=== PATIENT | male | born 1950 | race Caucasian/White ===

== ENCOUNTER → 2021-01-13 15:51 | Outpatient (CLI) | payer MEDICARE, SELFPAY ==
[2021-01-13 16:24] LABS: Prothrombin Time 58.3 SECONDS (10.1-12.7)
== END ==
PROVIDERS: PCP Internal Medicine Cardiovascular Disease; Referring Provider Internal Medicine Cardiovascular Disease; Visit Provider Internal Medicine Cardiovascular Disease
DX: I48.0 Paroxysmal atrial fibrillation (principal)
CPT/HCPCS: 36415; 85610

== ENCOUNTER 2022-12-05 14:02 | Inpatient (IN) | payer MEDICARE, SELFPAY ==
[2022-12-05] VITALS (80 sets, daily range): BP systolic 84–134; BP diastolic 53–74; PULSE 59–87; RESP 16–40; TEMP 37–38.4; O2SAT 90–98; BMI 24.7
--- NOTE | 2022-12-05 14:51 | DI.RAD.S_ITS ---
PROCEDURE: XR CHEST 1V INDICATIONS: suspected sepsis TECHNIQUE: One view of the chest was acquired. COMPARISON: None. FINDINGS: Surgical changes and devices: Cardiac device overlying the mediastinum. Lungs and pleura: Bibasilar curvilinear opacities likely reflecting atelectasis and/or scarring. No pleural effusion. No pneumothorax. Mediastinum: Enlarged cardiac silhouette likely exaggerated by AP technique. Bones and chest wall: No suspicious bony lesions. Overlying soft tissues appear unremarkable. IMPRESSION: Bibasilar curvilinear opacities favored to represent atelectasis with infection not excluded. Dictated by: George Tucker M.D. on 12/05/2022 at 14:29 Approved by: George Tucker M.D. on 12/05/2022 at 14:30
[2022-12-05 15:07] LABS: Bacteria Urine Few (2-10); Culture Indicated Urine Cult Not Indicated; RBC Urine 1-5/HPF (0-5/HPF); Squamous Epithelial Cell Urine 0-1 /HPF (0-5/HPF); WBC Urine 0-1/HPF (0-5/HPF)
[2022-12-05 15:26] LABS: Adenovirus Not Detected (Not Detect); B. parapertussis Not Detected (Not Detecte); Bordetella pertussis Not Detected (Not Detecte); Chlamydophila pneumoniae Not Detected (Not Detect); Coronavirus 229E Not Detected (Not Detect); Coronavirus HKU1 Not Detected (Not Detect); Coronavirus NL 63 Not Detected (Not Detect); Coronavirus OC43 Not Detected (Not Detect); Human Metapneumovirus Not Detected (Not Detect); Human Rhinovirus/Enterovirus Not Detected (Not Detect); Influenza A Not Detected (Not Detect); Influenza B Not Detected (Not Detect); Mycoplasma pneumoniae Not Detected (Not Detect); Parainfluenza Virus 1 Not Detected (Not Detect); Parainfluenza Virus 2 Not Detected (Not Detect); Parainfluenza Virus 3 Not Detected (Not Detect); Parainfluenza Virus 4 Not Detected (Not Detect); Respiratory Syncytial Virus Not Detected (Not Detect); SARS- CoV-2 Not Detected (Not Detecte)
--- NOTE | 2022-12-05 15:50 | PC.NURSE ---
Called from [facility] to rm 8. upon standing pt with unsteady gait and almost fell backwards. was assisted to a sitting position by RN and was taken in wheelchair to room 8. This unsteadiness is a change from triage assessment.
[2022-12-05 16:14] LABS: Add Manual Diff / Slide Review NO; Basophils Absolute Auto 0 /uL (0-100); Basophils Percent Auto 0.3 % (0-2); Eosinophils Absolute Auto 0 /uL (0-450); Hematocrit 35.8 % (41-53); Hemoglobin 12.3 g/dL (13.5-17.5); Lymphocytes Absolute Auto 200 /uL (1100-4500); Lymphocytes Percent Auto 1.6 % (25-40); Mean Corpuscular HGB Conc 34.3 % (30-36); Mean Corpuscular Hemoglobin 33.3 PG (26-34); Mean Corpuscular Volume 97.1 fL (80-100); Monocytes Absolute Auto 200 /uL (0-900); Monocytes Percent Auto 1.9 % (3-14); Neutrophils Absolute Auto 11300 /uL (1500-7000); Neutrophils Percent Auto 96.2 % (50-75); Platelet Count 171 X10^3/uL (150-400); Red Blood Cell Count 3.69 X10^6/uL (4.5-5.9); Red Cell Distribution Width 14.1 % (11.6-14.8); White Blood Cell Count 11.8 X10^3/uL (4.5-11.0)
[2022-12-05] MEDS: SODIUM CHLORIDE 0.9% 1,000 ML 1000 ML IV (16:15)
[2022-12-05 16:24] LABS: INR 1.3 (0.9-1.3); Prothrombin Time 15.5 SECONDS (10.1-12.7)
[2022-12-05 16:27] LABS: PTT Partial Thromboplastin Tim 29 SECONDS (26-36)
[2022-12-05 16:30] LABS: Lactate (Lactic Acid) 2.5 mmol/L (0.7-2.1)
[2022-12-05 16:31] LABS: Alanine Aminotransferase 30 IU/L (<50); Albumin 4.3 g/dL (3.5-5.0); Albumin Globulin Ratio 1.2 (1.0-2.8); Alkaline Phosphatase 67 U/L (38-126); Aspartate Aminotransferase 36 IU/L (17-59); BUN Creatinine Ratio 21.9 (6-22); Bilirubin Total 1.5 mg/dL (0.2-1.3); Blood Urea Nitrogen 42 mg/dL (9-20); Calcium 9.5 mg/dL (8.4-10.2); Carbon Dioxide 27 mmol/L (22-32); Chloride 101 mmol/L (98-107); Estimated Glomerular Filt Rate 36 mL/min (>60); Globulin 3.5 g/dL (1.7-4.1); Glucose 94 mg/dL (80-110); HEMOLYSIS 15 (0-50); Lipase 174 U/L (23-300); Potassium 4.2 mmol/L (3.4-5.1); Sodium 137 mmol/L (137-145); Total Protein 7.8 g/dL (6.3-8.2)
[2022-12-05 16:47] LABS: Procalcitonin 1.82 ng/mL (<0.5)
[2022-12-05 18:10] LABS: Reflexed Lactate in 2 Hours Y
--- NOTE | 2022-12-05 18:14 | ED.SEPSIS ---
HPI - Sepsis General Chief Complaint: Fever Mode of arrival: Ambulatory Source: patient Evaluation Sepsis Screen: No Definite Risk Sepsis Infection Criteria Present: Suspected New Infection Narrative: 72-year-old male nonsmoker with a history of pacemaker placement a few months ago, sepsis with prolonged hospitalization in March at [facility] and he reports as chronic kidney disease (no dialysis) presents with a chief complaint of fever and shaking chills that started this morning. He denies much in the way of specific complaints but it is feeling fatigued with a mild headache. He denies any runny nose or sore throat. He denies chest pain, shortness of breath or cough. Denies abdominal pain, nausea, vomiting or diarrhea. The source of his sepsis last year was a LLE infection. He denies any pain, swelling, or discoloration in his leg, but does state it has been warm. He denies dysuria, frequency or urgency. Review of Systems Review of Systems Narrative: GENERAL: See HPI HEENT: Denies sinus pain, ear pain, sore throat, difficulty swallowing, dizziness. RESPIRATORY: Denies dyspnea, cough, wheezing, hemoptysis, sputum. CARDIOVASCULAR: Denies chest pain, palpitations, orthopnea, edema, GASTROINTESTINAL: Denies nausea, vomiting, abdominal pain, diarrhea, constipation, melena. : Denies dysuria, frequency, incontinence, hematuria, urinary retention. MUSCULOSKELETAL: denies weakness, joint pain, or bony pain SKIN: See HPI NEUROLOGIC: See HPI PSYCHIATRIC: No concerning psychosocial issues. 12 point review of systems is negative except for those stated above Patient History Medical History (Updated 12/06/22 @ 05:11 by Fortino Menjivar DO) AAA (abdominal aortic aneurysm) Abscess of left lower extremity Anticoagulant long-term use Atrial fibrillation Cholelithiasis COVID-19 virus infection Glaucoma Hyperlipidemia Hypertension Hypothyroid FARIDEH (obstructive sleep apnea) Osteoporosis Pacemaker Pulmonary hypertension Stage 3b chronic kidney disease (CKD) Social History household members: spouse Smoking Status: Never smoker alcohol intake: current Smoking Status: Never smoker Substance Use Type: does not use Exam Narrative Exam Narrative: GENERAL: [72] year old patient appears stated age. Well-developed patient, in mild distress. HEAD: Atraumatic. Normocephalic. EYES: Pupils equal round and reactive. Extraocular motions intact. No scleral icterus. No injection or drainage. ENT: Nose without bleeding, purulent drainage. Throat without erythema, tonsillar hypertrophy or exudate. Airway patent. NECK: Trachea midline. Non tender CARDIOVASCULAR: Regular rate and rhythm without murmurs, gallops, or rubs. RESPIRATORY: Clear to auscultation. Breath sounds equal bilaterally. No wheezes, rales, or rhonchi. GASTROINTESTINAL: Abdomen soft, non-tender, nondistended. EXTREMITIES: No edema or joint tenderness. BACK: Nontender without deformity or crepitance. No flank tenderness. NEURO: AOx3. SKIN: LLE with warmth below the knee, no obvious swelling. No drainage Initial Vital Signs Initial Vital Signs: Vital Signs Temperature 98.6 F 12/05/22 14:11 Pulse Rate 83 12/05/22 14:11 Respiratory Rate 16 12/05/22 14:11 Blood Pressure 102/60 12/05/22 14:11 Pulse Oximetry 97 12/05/22 14:11 Oxygen Delivery Method Room Air 12/05/22 14:11 Course Orders Ordered: ED Orders 12/05/22 23:48 CT LE LT wo con Stat 12/06/22 01:58 Lactate (Lactic Acid) Stat 12/06/22 02:18 Consult After Hours PICC Line RN Stat 12/06/22 03:50 MRSA (Nasal) PCR Stat 12/06/22 05:00 Complete Blood Count AUTO DIFF Routine Comprehensive Metabolic Panel Routine Acetaminophen (Acetaminophen 325 Mg Tablet) 650 mg PO Q6H PRN PRN Reason: Fever/Mild Pain (1-3) Sodium Chloride (Normal Saline 0.9%) 1,000 mls @ 150 mls/hr IV CONT PRASANTH Last Admin: 12/06/22 04:01 Dose: 150 mls/hr Documented By: [facility] NOREPINEPHRINE BITARTRATE/D5W (Levophed) 4 mg in 250 mls @ 30 mls/hr IV TITRATE PRASANTH; Protocol Linezolid (Zyvox) 600 mg in 300 mls @ 600 mls/hr IV Q12H PRASANTH Piperacillin Sod/Tazobactam (Sod 3.375 gm/ Sodium Chloride) 100 mls @ 25 mls/hr IV Q8H PRASANTH Last Admin: 12/06/22 04:21 Dose: 25 mls/hr Documented By: [facility] Naloxone HCl (Naloxone 0.4 Mg/Ml Vial) 0.2 mg IV Q2MIN PRN PRN Reason: Opiate Reversal Ondansetron HCl (Ondansetron 4 Mg/2 Ml Inj) 4 mg IV NOW PRN PRN Reason: Nausea And Vomiting Ondansetron HCl (Ondansetron 4 Mg Odt) 4 mg SL NOW PRN PRN Reason: Nausea And Vomiting Discontinued Medications Acetaminophen (Acetaminophen 325 Mg Tablet) 650 mg PO NOW ONE Stop: 12/05/22 18:00 Last Admin: 12/05/22 18:19 Dose: 650 mg Documented By: ANNIA Acetaminophen (Acetaminophen 325 Mg Tablet) 650 mg PO NOW ONE Stop: 12/06/22 02:14 Last Admin: 12/06/22 02:31 Dose: 650 mg Documented By: MARIEL Sodium Chloride (Normal Saline 0.9%) 1,000 mls @ 1,000 mls/hr IV BOLUS ONE Stop: 12/05/22 15:50 Last Infusion: 12/05/22 18:15 Dose: 0 mls/hr Documented By: Admin: 12/05/22 16:15 Dose: 1,000 mls/hr Documented By: ANNIA Lactated Ringer's (Lactated Ringers) 2,811 mls @ 937 mls/hr 30 ml/kg infuse over 3 hr (2811 ml) IV NOW ONE Stop: 12/05/22 21:07 Last Infusion: 12/05/22 22:01 Dose: 0 mls/hr Documented By: Infusion: 12/05/22 20:48 Dose: 937 mls/hr Documented By: Infusion: 12/05/22 19:12 Dose: 937 mls/hr Documented By: Infusion: 12/05/22 18:39 Dose: 0 mls/hr Documented By: Admin: 12/05/22 18:21 Dose: 937 mls/hr Documented By: ANNIA Ceftriaxone Sodium 2,000 mg/ (Sodium Chloride) 100 mls @ 200 mls/hr IV NOW ONE Stop: 12/05/22 18:30 Last Infusion: 12/05/22 19:13 Dose: 0 mls/hr Documented By: Admin: 12/05/22 18:35 Dose: 200 mls/hr Documented By: EITAN Azithromycin 500 mg/ Dextrose 250 mls @ 250 mls/hr IV NOW ONE Stop: 12/05/22 18:30 Last Infusion: 12/05/22 20:51 Dose: 0 mls/hr Documented By: Admin: 12/05/22 19:30 Dose: 250 mls/hr Documented By: EITAN Lactated Ringer's (Lactated Ringers) 1,000 mls @ 150 mls/hr IV CONT PRASANTH Last Infusion: 12/06/22 04:03 Dose: 0 mls/hr Documented By: [facility] Admin: 12/05/22 21:50 Dose: 150 mls/hr Documented By: MARIEL Piperacillin Sod/Tazobactam (Sod 4.5 gm/ Sodium Chloride) 100 mls @ 200 mls/hr IV NOW ONE Stop: 12/05/22 23:49 Last Infusion: 12/06/22 00:46 Dose: 0 mls/hr Documented By: Admin: 12/06/22 00:01 Dose: 200 mls/hr Documented By: MARIEL Linezolid (Zyvox) 600 mg in 300 mls @ 600 mls/hr IV NOW ONE Stop: 12/06/22 02:18 Last Infusion: 12/06/22 03:00 Dose: 0 mls/hr Documented By: Admin: 12/06/22 02:10 Dose: 600 mls/hr Documented By: [facility] Piperacillin Sod/Tazobactam (Sod 2.25 gm/ Sodium Chloride) 100 mls @ 25 mls/hr IV Q8H [facility] Linezolid (Zyvox) 600 mg in 300 mls @ 600 mls/hr IV Q12H [facility] Stop: 12/13/22 02:00 Ketorolac Tromethamine (Ketorolac 30 Mg/Ml Vial) 10 mg IV NOW ONE Stop: 12/05/22 22:41 Last Admin: 12/05/22 22:52 Dose: 10 mg Documented By: MARIEL Reevaluation(s) Reevaluation #1: patient with improved vitals after fluids, lactate improved Vital Signs Vital signs: Vital Signs - 8 hr 12/05/22 21:05 12/05/22 21:06 12/05/22 21:06 Temperature Pulse Rate 60 60 Respiratory Rate 34 H 31 H Blood Pressure 91/54 L Pulse Oximetry 96 96 12/05/22 21:10 12/05/22 21:10 12/05/22 21:15 Temperature Pulse Rate 60 Respiratory Rate 25 H Blood Pressure 97/57 L 88/59 L Pulse Oximetry 96 12/05/22 21:15 12/05/22 21:20 12/05/22 21:20 Temperature Pulse Rate 60 60 Respiratory Rate 27 H 26 H Blood Pressure 101/59 L Pulse Oximetry 96 95 12/05/22 21:25 12/05/22 21:25 12/05/22 21:30 Temperature Pulse Rate 60 60 Respiratory Rate 22 26 H Blood Pressure 112/61 Pulse Oximetry 97 96 12/05/22 21:30 12/05/22 21:35 12/05/22 21:35 Temperature Pulse Rate 60 Respiratory Rate 24 Blood Pressure 111/59 L 109/61 Pulse Oximetry 96 12/05/22 21:40 12/05/22 21:40 12/05/22 21:45 Temperature Pulse Rate 60 Respiratory Rate 32 H Blood Pressure 107/55 L 109/61 Pulse Oximetry 97 12/05/22 21:45 12/05/22 21:50 12/05/22 21:50 Temperature Pulse Rate 60 60 Respiratory Rate 26 H 25 H Blood Pressure 107/61 Pulse Oximetry 95 96 12/05/22 21:55 12/05/22 21:55 12/05/22 22:00 Temperature Pulse Rate 60 Respiratory Rate 25 H Blood Pressure 115/64 113/65 Pulse Oximetry 90 L 12/05/22 22:00 12/05/22 22:05 12/05/22 22:05 Temperature Pulse Rate 59 L 60 Respiratory Rate 28 H 25 H Blood Pressure 119/65 Pulse Oximetry 95 97 12/05/22 22:10 12/05/22 22:10 12/05/22 22:15 Temperature Pulse Rate 59 L Respiratory Rate 23 Blood Pressure 110/67 116/61 Pulse Oximetry 97 12/05/22 22:15 12/05/22 22:20 12/05/22 22:20 Temperature Pulse Rate 59 L 60 Respiratory Rate 21 19 Blood Pressure 114/64 Pulse Oximetry 98 97 12/05/22 22:25 12/05/22 22:25 12/05/22 22:30 Temperature Pulse Rate 60 Respiratory Rate 25 H Blood Pressure 129/58 L 126/74 Pulse Oximetry 97 12/05/22 22:30 12/05/22 22:35 12/05/22 22:35 Temperature Pulse Rate 60 59 L Respiratory Rate 29 H 27 H Blood Pressure 120/60 Pulse Oximetry 96 97 12/05/22 22:40 12/05/22 22:41 12/05/22 22:41 Temperature Pulse Rate 60 60 Respiratory Rate 23 30 H Blood Pressure 110/65 Pulse Oximetry 96 95 12/05/22 22:45 12/05/22 22:45 12/05/22 22:50 Temperature Pulse Rate 62 Respiratory Rate 29 H Blood Pressure 107/67 111/68 Pulse Oximetry 95 12/05/22 22:50 12/05/22 22:55 12/05/22 22:57 Temperature Pulse Rate 62 61 Respiratory Rate 26 H 33 H Blood Pressure 115/59 L Pulse Oximetry 95 96 12/05/22 22:57 12/05/22 23:00 12/05/22 23:05 Temperature Pulse Rate 85 75 Respiratory Rate 40 H 28 H Blood Pressure 124/63 Pulse Oximetry 12/05/22 23:05 12/05/22 23:10 12/05/22 23:10 Temperature Pulse Rate 69 62 Respiratory Rate 31 H 31 H Blood Pressure 115/56 L Pulse Oximetry 12/05/22 23:15 12/05/22 23:15 12/05/22 23:20 Temperature Pulse Rate 62 Respiratory Rate 29 H Blood Pressure 97/55 L 110/59 L Pulse Oximetry 12/05/22 23:20 12/05/22 23:25 12/05/22 23:25 Temperature Pulse Rate 62 63 Respiratory Rate 27 H 24 Blood Pressure 103/54 L Pulse Oximetry 12/05/22 23:30 12/05/22 23:30 12/05/22 23:35 Temperature Pulse Rate 62 Respiratory Rate 22 Blood Pressure 101/53 L 99/55 L Pulse Oximetry 12/05/22 23:35 12/05/22 23:40 12/05/22 23:40 Temperature Pulse Rate 61 60 Respiratory Rate 31 H 30 H Blood Pressure 95/53 L Pulse Oximetry 12/05/22 23:45 12/05/22 23:45 12/05/22 23:50 Temperature Pulse Rate 59 L Respiratory Rate 29 H Blood Pressure 102/53 L 94/55 L Pulse Oximetry 12/05/22 23:50 12/05/22 23:55 12/05/22 23:55 Temperature Pulse Rate 59 L 59 L Respiratory Rate 29 H 25 H Blood Pressure 105/53 L Pulse Oximetry 12/06/22 00:00 12/06/22 00:00 12/06/22 00:05 Temperature Pulse Rate 59 L Respiratory Rate 24 Blood Pressure 106/57 L 86/52 L Pulse Oximetry 12/06/22 00:05 12/06/22 00:10 12/06/22 00:10 Temperature Pulse Rate 59 L 59 L Respiratory Rate 24 28 H Blood Pressure 89/53 L Pulse Oximetry 12/06/22 00:11 12/06/22 00:11 12/06/22 00:39 Temperature Pulse Rate 62 60 Respiratory Rate 28 H Blood Pressure 100/54 L Pulse Oximetry 92 12/06/22 00:40 12/06/22 00:40 12/06/22 00:45 Temperature Pulse Rate 59 L Respiratory Rate 28 H Blood Pressure 90/51 L 93/52 L Pulse Oximetry 92 12/06/22 00:45 12/06/22 00:50 12/06/22 00:50 Temperature Pulse Rate 59 L 59 L Respiratory Rate 27 H 24 Blood Pressure 96/55 L Pulse Oximetry 92 95 12/06/22 00:55 12/06/22 00:55 12/06/22 01:00 Temperature Pulse Rate 59 L Respiratory Rate 24 Blood Pressure 99/57 L 110/59 L Pulse Oximetry 92 12/06/22 01:00 12/06/22 01:05 12/06/22 01:10 Temperature Pulse Rate 59 L 59 L 59 L Respiratory Rate 23 25 H 23 Blood Pressure Pulse Oximetry 93 95 94 12/06/22 01:15 12/06/22 01:20 12/06/22 01:25 Temperature 99.8 F H Pulse Rate 59 L 59 L 59 L Respiratory Rate 23 24 25 H Blood Pressure Pulse Oximetry 94 95 94 12/06/22 01:30 12/06/22 01:30 12/06/22 01:35 Temperature Pulse Rate 59 L 59 L Respiratory Rate 23 23 Blood Pressure 96/56 L Pulse Oximetry 94 94 12/06/22 01:40 12/06/22 01:45 12/06/22 01:50 Temperature Pulse Rate 59 L 59 L 60 Respiratory Rate 22 22 22 Blood Pressure Pulse Oximetry 92 95 95 12/06/22 01:55 12/06/22 02:00 12/06/22 02:00 Temperature Pulse Rate 60 60 Respiratory Rate 24 24 Blood Pressure 95/60 Pulse Oximetry 94 95 12/06/22 02:05 12/06/22 02:10 12/06/22 02:15 Temperature Pulse Rate 60 60 60 Respiratory Rate 22 25 H 21 Blood Pressure Pulse Oximetry 95 94 94 12/06/22 02:20 Temperature 101 F H Pulse Rate 60 Respiratory Rate 21 Blood Pressure Pulse Oximetry 93 Sepsis Evaluation (ED) Triage Screening Sepsis Screen: No Definite Risk Level 1 - Infection Sepsis Infection Criteria Present: Suspected New Infection Response It is my opinion that his patient have a likely infectious etiology for meeting sepsis criteria: Does Fluid calculation based on 30 mL/kg within 1hr of criteria: ABW used Antibiotics initiated within 1 hr of Sepis dx: Yes Tissue Perfusion Reassessed within 6 hrs of infusion start time: Yes Date of Tissue Perfusion Reassessment completed: 12/05/22 Time Tissue Perfusion Reassessment completed: 20:15 MDM - Sepsis Lab Data 12/05/22 16:01 12/05/22 16:01 Labs: Lab Results 12/05/22 12/05/22 12/05/22 Range/Units 14:20 14:40 16:01 WBC 11.8 H (4.5-11.0) X10^3/uL RBC 3.69 L (4.5-5.9) X10^6/uL Hgb 12.3 L (13.5-17.5) g/dL Hct 35.8 L (41-53) % MCV 97.1 (80-100) fL MCH 33.3 (26-34) PG MCHC 34.3 (30-36) % RDW 14.1 (11.6-14.8) % Plt Count 171 (150-400) X10^3/uL Neut % (Auto) 96.2 H (50-75) % Lymph % (Auto) 1.6 L (25-40) % [place] % (Auto) 1.9 L (3-14) % Eos % (Auto) 0.0 L (2-4) % Baso % (Auto) 0.3 (0-2) % Neut # (Auto) 62894 H (7037-9748) /uL Lymph # (Auto) 200 L (9618-2781) /uL [place] # (Auto) 200 (0-900) /uL Eos # (Auto) 0 (0-450) /uL Baso # (Auto) 0 (0-100) /uL PT (10.1-12.7) SECONDS INR (0.9-1.3) APTT (26-36) SECONDS Sodium (137-145) mmol/L Potassium (3.4-5.1) mmol/L Chloride (98-107) mmol/L Carbon Dioxide (22-32) mmol/L BUN (9-20) mg/dL Creatinine (0.66-1.25) mg/dL Estimated GFR (>60) mL/min BUN/Creatinine Ratio (6-22) Glucose (80-110) mg/dL Lactate (0.7-2.1) mmol/L Calcium (8.4-10.2) mg/dL Total Bilirubin (0.2-1.3) mg/dL AST (17-59) IU/L ALT (<50) IU/L Alkaline Phosphatase (38-126) U/L Total Protein (6.3-8.2) g/dL Albumin (3.5-5.0) g/dL Globulin (1.7-4.1) g/dL Albumin/Globulin Ratio (1.0-2.8) Lipase (23-300) U/L Procalcitonin (<0.5) ng/mL Urine RBC 1-5/hpf (0-5/HPF) Urine WBC 0-1/hpf (0-5/HPF) Ur Squamous Epith Cells 0-1 /hpf (0-5/HPF) Urine Bacteria Few (2-10) H (None) Ur Culture Indicated? Cult not indicated Chlamy pneumoniae PCR Not detected (Not Detect) Adenovirus (PCR) Not detected (Not Detect) B. pertussis DNA (PCR) Not detected (Not Detecte) B.parapertussis DNA PCR Not detected (Not Detecte) Coronavirus OC43 (PCR) Not detected (Not Detect) Coronavirus HKU1 (PCR) Not detected (Not Detect) Coronavirus 229E (PCR) Not detected (Not Detect) SARS-CoV-2 (PCR) Not detected (Not Detecte) Coronavirus NL63 (PCR) Not detected (Not Detect) Human Metapneumovir PCR Not detected (Not Detect) Influenza Type A (PCR) Not detected (Not Detect) Influenza Type B (PCR) Not detected (Not Detect) M. pneumoniae (PCR) Not detected (Not Detect) Parainfluenza 1 (PCR) Not detected (Not Detect) Parainfluenza 2 (PCR) Not detected (Not Detect) Parainfluenza 3 (PCR) Not detected (Not Detect) Parainfluenza 4 (PCR) Not detected (Not Detect) RSV (PCR) Not detected (Not Detect) Entero/Rhino (PCR) Not detected (Not Detect) 12/05/22 12/05/22 12/05/22 Range/Units 16:01 16:01 16:01 WBC (4.5-11.0) X10^3/uL RBC (4.5-5.9) X10^6/uL Hgb (13.5-17.5) g/dL Hct (41-53) % MCV (80-100) fL MCH (26-34) PG MCHC (30-36) % RDW (11.6-14.8) % Plt Count (150-400) X10^3/uL Neut % (Auto) (50-75) % Lymph % (Auto) (25-40) % [place] % (Auto) (3-14) % Eos % (Auto) (2-4) % Baso % (Auto) (0-2) % Neut # (Auto) (8550-8909) /uL Lymph # (Auto) (1674-6529) /uL [place] # (Auto) (0-900) /uL Eos # (Auto) (0-450) /uL Baso # (Auto) (0-100) /uL PT 15.5 H (10.1-12.7) SECONDS INR 1.3 (0.9-1.3) APTT 29 (26-36) SECONDS Sodium 137 (137-145) mmol/L Potassium 4.2 (3.4-5.1) mmol/L Chloride 101 (98-107) mmol/L Carbon Dioxide 27 (22-32) mmol/L BUN 42 H (9-20) mg/dL Creatinine 1.92 H (0.66-1.25) mg/dL Estimated GFR 36 L (>60) mL/min BUN/Creatinine Ratio 21.9 (6-22) Glucose 94 (80-110) mg/dL Lactate 2.5 H (0.7-2.1) mmol/L Calcium 9.5 (8.4-10.2) mg/dL Total Bilirubin 1.5 H (0.2-1.3) mg/dL AST 36 (17-59) IU/L ALT 30 (<50) IU/L Alkaline Phosphatase 67 (38-126) U/L Total Protein 7.8 (6.3-8.2) g/dL Albumin 4.3 (3.5-5.0) g/dL Globulin 3.5 (1.7-4.1) g/dL Albumin/Globulin Ratio 1.2 (1.0-2.8) Lipase 174 (23-300) U/L Procalcitonin 1.82 H (<0.5) ng/mL Urine RBC (0-5/HPF) Urine WBC (0-5/HPF) Ur Squamous Epith Cells (0-5/HPF) Urine Bacteria (None) Ur Culture Indicated? Chlamy pneumoniae PCR (Not Detect) Adenovirus (PCR) (Not Detect) B. pertussis DNA (PCR) (Not Detecte) B.parapertussis DNA PCR (Not Detecte) Coronavirus OC43 (PCR) (Not Detect) Coronavirus HKU1 (PCR) (Not Detect) Coronavirus 229E (PCR) (Not Detect) SARS-CoV-2 (PCR) (Not Detecte) Coronavirus NL63 (PCR) (Not Detect) Human Metapneumovir PCR (Not Detect) Influenza Type A (PCR) (Not Detect) Influenza Type B (PCR) (Not Detect) M. pneumoniae (PCR) (Not Detect) Parainfluenza 1 (PCR) (Not Detect) Parainfluenza 2 (PCR) (Not Detect) Parainfluenza 3 (PCR) (Not Detect) Parainfluenza 4 (PCR) (Not Detect) RSV (PCR) (Not Detect) Entero/Rhino (PCR) (Not Detect) 12/05/22 Range/Units 18:15 WBC (4.5-11.0) X10^3/uL RBC (4.5-5.9) X10^6/uL Hgb (13.5-17.5) g/dL Hct (41-53) % MCV (80-100) fL MCH (26-34) PG MCHC (30-36) % RDW (11.6-14.8) % Plt Count (150-400) X10^3/uL Neut % (Auto) (50-75) % Lymph % (Auto) (25-40) % [place] % (Auto) (3-14) % Eos % (Auto) (2-4) % Baso % (Auto) (0-2) % Neut # (Auto) (5507-2354) /uL Lymph # (Auto) (4670-9576) /uL [place] # (Auto) (0-900) /uL Eos # (Auto) (0-450) /uL Baso # (Auto) (0-100) /uL PT (10.1-12.7) SECONDS INR (0.9-1.3) APTT (26-36) SECONDS Sodium (137-145) mmol/L Potassium (3.4-5.1) mmol/L Chloride (98-107) mmol/L Carbon Dioxide (22-32) mmol/L BUN (9-20) mg/dL Creatinine (0.66-1.25) mg/dL Estimated GFR (>60) mL/min BUN/Creatinine Ratio (6-22) Glucose (80-110) mg/dL Lactate 1.2 (0.7-2.1) mmol/L Calcium (8.4-10.2) mg/dL Total Bilirubin (0.2-1.3) mg/dL AST (17-59) IU/L ALT (<50) IU/L Alkaline Phosphatase (38-126) U/L Total Protein (6.3-8.2) g/dL Albumin (3.5-5.0) g/dL Globulin (1.7-4.1) g/dL Albumin/Globulin Ratio (1.0-2.8) Lipase (23-300) U/L Procalcitonin (<0.5) ng/mL Urine RBC (0-5/HPF) Urine WBC (0-5/HPF) Ur Squamous Epith Cells (0-5/HPF) Urine Bacteria (None) Ur Culture Indicated? Chlamy pneumoniae PCR (Not Detect) Adenovirus (PCR) (Not Detect) B. pertussis DNA (PCR) (Not Detecte) B.parapertussis DNA PCR (Not Detecte) Coronavirus OC43 (PCR) (Not Detect) Coronavirus HKU1 (PCR) (Not Detect) Coronavirus 229E (PCR) (Not Detect) SARS-CoV-2 (PCR) (Not Detecte) Coronavirus NL63 (PCR) (Not Detect) Human Metapneumovir PCR (Not Detect) Influenza Type A (PCR) (Not Detect) Influenza Type B (PCR) (Not Detect) M. pneumoniae (PCR) (Not Detect) Parainfluenza 1 (PCR) (Not Detect) Parainfluenza 2 (PCR) (Not Detect) Parainfluenza 3 (PCR) (Not Detect) Parainfluenza 4 (PCR) (Not Detect) RSV (PCR) (Not Detect) Entero/Rhino (PCR) (Not Detect) Urine Dip Bedside Urine Glucose Negative Bedside Urine Bilirubin - Negative Bedside Urine Ketone - Negative Urine Specific [place] 1.015 Bedside Urine Occult Blood +++ Bedside Urine pH 5.5 Bedside Urine Protein - Negative Bedside Urine Urobilinogen - Negative Bedside Urine Nitrite - Negative Bedside Urine Leukocytes - Negative Esterase Imaging Data Chest x-ray: Radiologist's Impression: Possible bilateral basilar pneumonia MDM Narrative Medical decision making narrative: CC: 72-year-old male with kidney disease and pacemaker presents with fever and shaking chills wells generalized weakness Complicating co-morbidities: Age, kidney disease, prior sepsis Data collected from: Patient Medical records reviewed: Prior notes reviewed in our EMR Differential considered, but not limited to: Pneumonia versus UTI versus other bacteremia versus other Exam documented above, pertinent findings include: Heart rate regular, lungs clear, nonlabored breathing Lab Test results independently reviewed as above. Pertinent findings: Leukocytosis with left shift, no anemia, primary electrolytes within normal limits, creatinine 1.92, GFR 36, procalcitonin 1.82, urine without obvious evidence of infection, respiratory panel without positive findings, initial lactate 2.5 Independently reviewed EKG as above Imaging studies independently reviewed: Chest x-ray suggests possible bibasilar infiltrate Consultations: discussed with Dr. Bella, happy to accept. Requests imaging of LLE, will add Zosyn and Zyvox Treatments: 30mL/kg saline, Rocephin/Azithromycin Re-evaluations: fluid resuscitated, BP now 110s Discussion: Patient presents with fever and shaking chills, no shortness of breath or cough, no abdominal pain, no urinary complaints. Left lower extremity has been warm but denies any pain, swelling or other notable complaint. Septic orders including fluids at 30 cc/kilogram, blood cultures, lactate and early antibiotics ordered. Initially Rocephin and azithromycin but after discussion with hospitalist more broad-spectrum approach given. Had a brief period of lower blood pressure and attempt made to place ultrasound-guided central line, axis easy to obtain, however ability to advance line over the guidewire was Discharge Plan Departure Patient Disposition: Admitted As Inpatient Clinical Impression: Sepsis, Cellulitis of left leg Admit Date/Time: 12/06/22 02:29 Admit Provider: Christi Bella
[2022-12-05] MEDS: ACETAMINOPHEN 325 MG TABLET 650 MG PO (18:19)
[2022-12-05] MEDS: LACTATED RINGERS 937 ML IV (18:21)
[2022-12-05] MEDS: cefTRIAXone 2,000 MG in SODIUM CHLORIDE 0.9% 100 ML 200 MG IV (18:35)
[2022-12-05 18:41] LABS: Lactate 2HR (Lactic Acid Rflx) 1.2 mmol/L (0.7-2.1)
[2022-12-05] MEDS: AZITHROMYCIN 500 MG in DEXTROSE 5% IN WATER 250 ML 250 MG IV (19:30)
--- NOTE | 2022-12-05 21:04 | PC.NURSE ---
Patient's , Ileana Rizo cell [phone]; leaving for [place] around 0950.
[2022-12-05] MEDS: LACTATED RINGERS 1,000 ML 150 ML IV (21:50)
[2022-12-05] MEDS: KETOROLAC 30 MG/ML VIAL 10 MG IV (22:52)
--- NOTE | 2022-12-05 23:48 | DI.CT.S_ITS ---
PROCEDURE: CT LE LT W CON INDICATIONS: hx recent abscess distal LT tib/fib TECHNIQUE: Noncontrast 1-1.5 mm axial sections acquired from the femoral condyles through the ankles with coronal and sagittal reformats. COMPARISON: None. FINDINGS: Image quality: Excellent. Bones: No acute fracture or dislocation. There is severe narrowing of the visualized patellofemoral compartment within the left knee associated with osteophytosis and subchondral cystic changes. Mild to moderate joint space narrowing also demonstrated in the medial and lateral compartments with osteophytosis. A surgical screws present within the tibial tuberosity. No discrete bony erosions or periosteal reaction. Soft tissues: There is subcutaneous edema medially and laterally within the distal lower extremity with associated skin thickening. No discrete soft tissue ulcer. No peripherally enhancing fluid collections to suggest a discrete abscess. The visualized flexor, extensor peroneal, and Achilles tendons appear intact. There is chondrocalcinosis within the left knee. IMPRESSION: 1. Subcutaneous edema within the distal left lower extremity is nonspecific and may represent cellulitis. No discrete loculated peripherally enhancing fluid collection to suggest an abscess. 2. Osteoarthritic changes of the left knee including severe degeneration of the patellofemoral compartment. 3. Left knee chondrocalcinosis is nonspecific but may reflect CPPD arthropathy. Dictated by: Adryan Cho M.D. on 12/06/2022 at 1:34 Approved by: Adryan Cho M.D. on 12/06/2022 at 1:40
[2022-12-06] VITALS (190 sets, daily range): BP systolic 86–142; BP diastolic 50–74; PULSE 59–80; RESP 18–34; TEMP 36.7–38.9; O2SAT 35–100; BMI 25.3
[2022-12-06] MEDS: PIPERACILLIN/TAZO 4.5 GM in SODIUM CHLORIDE 0.9% 100 ML IV (00:01)
[2022-12-06] MEDS: LINEZOLID 600 MG/300 ML IV.SOLN IV ×2 (02:10→13:31)
--- NOTE | 2022-12-06 02:27 | PM.HP.1 ---
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 He had originally traveled to [place] and developed infection in his left leg after mild trauma. Despite multiple doses of antibiotics he developed 4 X 5 X 1 cm abscess in the left lower leg associated with shock and ATN. Post I/D all cultures were negative and his MSSA/MRSA Nasal Swab was also negative. He did not require dialysis. He had chronic bradycardia and had a pacemaker as an outpatient. His creatinine has improved from 5.0-1.9 recently. He lives in [place] and is building a house on one of the [facility]. He developed fever and chills and was concerned about recurrent infection. He has some redness in his left lower extremities but there is no tenderness or fluctuance. He denied any respiratory symptoms, abdominal symptoms, or symptoms. At [facility] he had a temperature 101.1, blood pressure 110/59, heart rate 59, respiratory rate 23, and normal saturations. Blood pressure did drop into the 70s and 80s. Exam significant for mild redness with warmth of the left lower leg and medial ankle without fluctuance or marked tenderness. Labs significant for procalcitonin 1.82, lactate 3.5 >>1.2, WBC 11.8, hemoglobin 12.3, 96% neutrophils, BUN 42, creatinine 1.92, normal bicarbonate, total bilirubin 1.5 with normal transaminases, procalcitonin 122, negative UA, and negative viral respiratory panel. Chest x-ray had bibasilar atelectasis but no overt infiltrate. EKG was ventricular paced with a rate of 62. He was given normal saline 30 cc/kg along with Rocephin and azithromycin. Bilateral internal jugular central lines were attempted but abandoned. His blood pressure has stabilized to 110 systolic for the past few hours. I reviewed the patient's case with the ER attending and requested a CT scan of the left lower leg, & Zosyn was started. Will determine disposition for transfer or admission depending on clinical response CT now confirms left lower leg cellultis. SBP remians 100. He will be admitted to ICU for management. PMHx +ER cisits: Left lower leg cuts and infection in [place] treated with antibiotics +Admitted 04/03 - 04/10/2022 [facility] Hospital: Severe sepsis, chronic bradycardia, shock, sepsis left lower leg with abscess, + ischemic ATN with creatinine 5.0. Creatinine improved to 2.0 post discharge. Did not need dialysis. I/D done by surgery. Chronic bradycardia 40's at baseline. No pacer placed. 1. Neuropathy 2. Permanent atrial fibrillation 3. Bradycardia: Leadless pacemaker 06/02/2022 4. Hypertension 5. Aortic stenosis: Mild 6. Pulm hypertension 7. AAA 3.9 + bilateral common iliac aneurysms 3.5 + RI Ilac + bilateral popliteal artery aneurysms 8. Pansinusitis 9. FARIDEH + CPAP 10. Cholelithasis 11. CKD stage IIIb: 1.9-2.5 12. Microsopic hematuria 13. Hyperlipidemia 14. Hypothyroid 15. Eliquis anticoagulation 16. Osteoporosis 17. Glaucoma 18. COVID-19 infection 07/2021 19. Left lower extremity cellulitis and abscess with culture-negative septic shock 03/2022 Echo 04/03/2022 ? ?Left ventricle size is normal. Normal wall thickness. Normal systolic function. LV EF is 67 % , assessed by modified Dueñas's biplane. There is elevated left atrial pressure and grade II left ventricular diastolic dysfunction ? ?Right ventricle is moderately dilated. The RV/LV ratio is 1.1. Normal systolic function. TAPSE measures 2.59 cm. ? ?Severe bi-atrial enlargement. ? ?Moderate tricuspid transvalvular regurgitation. ? ?Mild mitral regurgitation. ? ?Aortic sclerosis with possible mild stenosis; the peak and mean aortic gradients are 19/10mmHg, respectively. ? ?Trivial circumferential pericardial effusion present. ? ?Moderate pulmonary hypertension; the estimated PA pressure is 40-45 mmHg by an estimated RA pressure of 15 mmHg. PAST SURGICAL HISTORY 1. Leadless pacemaker 06/02/2022 2. Left patella surgery 1970 3. Inguinal hernia repair: Bilateral 4. LLE abscess I/D 04/03/2022 : [facility] Medical History (Updated 12/06/22 @ 05:11 by Fortino Menjivar DO) AAA (abdominal aortic aneurysm) Abscess of left lower extremity Anticoagulant long-term use Atrial fibrillation Cholelithiasis COVID-19 virus infection Glaucoma Hyperlipidemia Hypertension Hypothyroid FARIDEH (obstructive sleep apnea) Osteoporosis Pacemaker Pulmonary hypertension Stage 3b chronic kidney disease (CKD) Social History household members: spouse Smoking Status: Never smoker alcohol intake: current Comment: Intermittent smoking for 50-50 years. Quit 11/2021 No reports of alcohol abuse No marijuana Lives in [place]. Building a house on one of the [facility] Med Home Medications and Allergies Home Medications Medication Instructions Recorded Confirmed Type alendronate 70 mg tablet 70 mg PO DAILY 12/05/22 12/06/22 History apixaban 5 mg tablet (Eliquis) 5 mg PO BID 12/05/22 12/06/22 History atorvastatin 40 mg tablet 40 mg PO ONCE PM 12/05/22 12/06/22 History calcium citrate 200 mg (950 mg) 1,800 mg PO Q OTHER DAY 12/05/22 12/06/22 History tablet cholecalciferol (vitamin D3) 50 50 mcg PO DAILY 12/05/22 12/06/22 History mcg (2,000 unit) capsule latanoprost 0.005 % eye drops 1 drp EYE-BOTH QPM 12/05/22 12/06/22 History nifedipine 30 mg tablet,extended 30 mg PO DAILY 12/05/22 12/06/22 History release 24 hr thyroid (pork) 30 mg tablet 30 mg PO QAM 12/05/22 12/06/22 History ([place] Thyroid) timolol maleate 0.5 % eye drops 1 drp EYE-BOTH QAM 12/05/22 12/06/22 History Allergies Allergy/AdvReac Type Severity Reaction Status Date / Time No Known Drug Allergies Allergy Verified 12/05/22 14:11 Review of Systems Review of Systems Narrative: Significan for findings noted in HPI. Rest of complete ROS are negative. Exam Vital Signs (past 8 hours): - 12/05/22 18:30 12/05/22 18:45 12/05/22 19:00 Temperature Pulse Rate 60 63 63 Respiratory Rate 20 Blood Pressure 125/64 102/58 L 103/60 Pulse Oximetry 98 95 95 Oxygen Delivery Method Room Air 12/05/22 19:15 12/05/22 19:15 12/05/22 19:30 Temperature Pulse Rate 67 68 Respiratory Rate Blood Pressure 99/61 Pulse Oximetry 95 Oxygen Delivery Method 12/05/22 19:34 12/05/22 19:34 12/05/22 19:38 Temperature 101.1 F H Pulse Rate 63 Respiratory Rate Blood Pressure 112/57 L Pulse Oximetry 95 Oxygen Delivery Method Room Air 12/05/22 19:35 12/05/22 19:40 12/05/22 19:45 Temperature Pulse Rate 62 61 Respiratory Rate Blood Pressure 109/56 L Pulse Oximetry 94 94 Oxygen Delivery Method 12/05/22 19:45 12/05/22 19:51 12/05/22 19:55 Temperature Pulse Rate 61 63 62 Respiratory Rate Blood Pressure Pulse Oximetry 94 95 95 Oxygen Delivery Method 12/05/22 20:00 12/05/22 20:00 12/05/22 20:05 Temperature Pulse Rate 61 60 Respiratory Rate Blood Pressure 108/59 L Pulse Oximetry 95 95 Oxygen Delivery Method 12/05/22 20:10 12/05/22 20:15 12/05/22 20:15 Temperature Pulse Rate 66 65 Respiratory Rate Blood Pressure 95/57 L Pulse Oximetry 94 95 Oxygen Delivery Method 12/05/22 20:19 12/05/22 20:19 12/05/22 20:20 Temperature Pulse Rate 61 61 Respiratory Rate Blood Pressure 89/53 L Pulse Oximetry 95 95 Oxygen Delivery Method 12/05/22 20:25 12/05/22 20:30 12/05/22 20:30 Temperature Pulse Rate 60 60 Respiratory Rate 25 H 25 H Blood Pressure 85/55 L Pulse Oximetry 94 94 Oxygen Delivery Method 12/05/22 20:35 12/05/22 20:39 12/05/22 20:39 Temperature Pulse Rate 60 60 Respiratory Rate 27 H 29 H Blood Pressure 84/61 L Pulse Oximetry 96 96 Oxygen Delivery Method Room Air 12/05/22 20:40 12/05/22 20:45 12/05/22 20:45 Temperature Pulse Rate 60 60 Respiratory Rate 28 H 25 H Blood Pressure 85/61 L Pulse Oximetry 95 95 Oxygen Delivery Method 12/05/22 20:50 12/05/22 20:50 12/05/22 20:55 Temperature Pulse Rate 60 60 Respiratory Rate 25 H Blood Pressure 87/57 L 90/57 L Pulse Oximetry 95 96 Oxygen Delivery Method 12/05/22 20:55 12/05/22 21:00 12/05/22 21:00 Temperature Pulse Rate 60 60 Respiratory Rate 30 H 30 H Blood Pressure 91/57 L Pulse Oximetry 95 95 Oxygen Delivery Method 12/05/22 21:05 12/05/22 21:06 12/05/22 21:06 Temperature Pulse Rate 60 60 Respiratory Rate 34 H 31 H Blood Pressure 91/54 L Pulse Oximetry 96 96 Oxygen Delivery Method 12/05/22 21:10 12/05/22 21:10 12/05/22 21:15 Temperature Pulse Rate 60 Respiratory Rate 25 H Blood Pressure 97/57 L 88/59 L Pulse Oximetry 96 Oxygen Delivery Method 12/05/22 21:15 12/05/22 21:20 12/05/22 21:20 Temperature Pulse Rate 60 60 Respiratory Rate 27 H 26 H Blood Pressure 101/59 L Pulse Oximetry 96 95 Oxygen Delivery Method 12/05/22 21:25 12/05/22 21:25 12/05/22 21:30 Temperature Pulse Rate 60 60 Respiratory Rate 22 26 H Blood Pressure 112/61 Pulse Oximetry 97 96 Oxygen Delivery Method 12/05/22 21:30 12/05/22 21:35 12/05/22 21:35 Temperature Pulse Rate 60 Respiratory Rate 24 Blood Pressure 111/59 L 109/61 Pulse Oximetry 96 Oxygen Delivery Method 12/05/22 21:40 12/05/22 21:40 12/05/22 21:45 Temperature Pulse Rate 60 Respiratory Rate 32 H Blood Pressure 107/55 L 109/61 Pulse Oximetry 97 Oxygen Delivery Method 12/05/22 21:45 12/05/22 21:50 12/05/22 21:50 Temperature Pulse Rate 60 60 Respiratory Rate 26 H 25 H Blood Pressure 107/61 Pulse Oximetry 95 96 Oxygen Delivery Method 12/05/22 21:55 12/05/22 21:55 12/05/22 22:00 Temperature Pulse Rate 60 Respiratory Rate 25 H Blood Pressure 115/64 113/65 Pulse Oximetry 90 L Oxygen Delivery Method 12/05/22 22:00 12/05/22 22:05 12/05/22 22:05 Temperature Pulse Rate 59 L 60 Respiratory Rate 28 H 25 H Blood Pressure 119/65 Pulse Oximetry 95 97 Oxygen Delivery Method 12/05/22 22:10 12/05/22 22:10 12/05/22 22:15 Temperature Pulse Rate 59 L Respiratory Rate 23 Blood Pressure 110/67 116/61 Pulse Oximetry 97 Oxygen Delivery Method 12/05/22 22:15 12/05/22 22:20 12/05/22 22:20 Temperature Pulse Rate 59 L 60 Respiratory Rate 21 19 Blood Pressure 114/64 Pulse Oximetry 98 97 Oxygen Delivery Method 12/05/22 22:25 12/05/22 22:25 12/05/22 22:30 Temperature Pulse Rate 60 Respiratory Rate 25 H Blood Pressure 129/58 L 126/74 Pulse Oximetry 97 Oxygen Delivery Method 12/05/22 22:30 12/05/22 22:35 12/05/22 22:35 Temperature Pulse Rate 60 59 L Respiratory Rate 29 H 27 H Blood Pressure 120/60 Pulse Oximetry 96 97 Oxygen Delivery Method 12/05/22 22:40 12/05/22 22:41 12/05/22 22:41 Temperature Pulse Rate 60 60 Respiratory Rate 23 30 H Blood Pressure 110/65 Pulse Oximetry 96 95 Oxygen Delivery Method 12/05/22 22:45 12/05/22 22:45 12/05/22 22:50 Temperature Pulse Rate 62 Respiratory Rate 29 H Blood Pressure 107/67 111/68 Pulse Oximetry 95 Oxygen Delivery Method 12/05/22 22:50 12/05/22 22:55 12/05/22 22:57 Temperature Pulse Rate 62 61 Respiratory Rate 26 H 33 H Blood Pressure 115/59 L Pulse Oximetry 95 96 Oxygen Delivery Method 12/05/22 22:57 12/05/22 23:00 12/05/22 23:05 Temperature Pulse Rate 85 75 Respiratory Rate 40 H 28 H Blood Pressure 124/63 Pulse Oximetry Oxygen Delivery Method 12/05/22 23:05 12/05/22 23:10 12/05/22 23:10 Temperature Pulse Rate 69 62 Respiratory Rate 31 H 31 H Blood Pressure 115/56 L Pulse Oximetry Oxygen Delivery Method 12/05/22 23:15 12/05/22 23:15 12/05/22 23:20 Temperature Pulse Rate 62 Respiratory Rate 29 H Blood Pressure 97/55 L 110/59 L Pulse Oximetry Oxygen Delivery Method 12/05/22 23:20 12/05/22 23:25 12/05/22 23:25 Temperature Pulse Rate 62 63 Respiratory Rate 27 H 24 Blood Pressure 103/54 L Pulse Oximetry Oxygen Delivery Method 12/05/22 23:30 12/05/22 23:30 12/05/22 23:35 Temperature Pulse Rate 62 Respiratory Rate 22 Blood Pressure 101/53 L 99/55 L Pulse Oximetry Oxygen Delivery Method 12/05/22 23:35 12/05/22 23:40 12/05/22 23:40 Temperature Pulse Rate 61 60 Respiratory Rate 31 H 30 H Blood Pressure 95/53 L Pulse Oximetry Oxygen Delivery Method 12/05/22 23:45 12/05/22 23:45 12/05/22 23:50 Temperature Pulse Rate 59 L Respiratory Rate 29 H Blood Pressure 102/53 L 94/55 L Pulse Oximetry Oxygen Delivery Method 12/05/22 23:50 12/05/22 23:55 12/05/22 23:55 Temperature Pulse Rate 59 L 59 L Respiratory Rate 29 H 25 H Blood Pressure 105/53 L Pulse Oximetry Oxygen Delivery Method 12/06/22 00:00 12/06/22 00:00 12/06/22 00:05 Temperature Pulse Rate 59 L Respiratory Rate 24 Blood Pressure 106/57 L 86/52 L Pulse Oximetry Oxygen Delivery Method 12/06/22 00:05 12/06/22 00:10 12/06/22 00:10 Temperature Pulse Rate 59 L 59 L Respiratory Rate 24 28 H Blood Pressure 89/53 L Pulse Oximetry Oxygen Delivery Method 12/06/22 00:11 12/06/22 00:11 12/06/22 00:39 Temperature Pulse Rate 62 60 Respiratory Rate 28 H Blood Pressure 100/54 L Pulse Oximetry 92 Oxygen Delivery Method 12/06/22 00:40 12/06/22 00:40 12/06/22 00:45 Temperature Pulse Rate 59 L Respiratory Rate 28 H Blood Pressure 90/51 L 93/52 L Pulse Oximetry 92 Oxygen Delivery Method 12/06/22 00:45 12/06/22 00:50 12/06/22 00:50 Temperature Pulse Rate 59 L 59 L Respiratory Rate 27 H 24 Blood Pressure 96/55 L Pulse Oximetry 92 95 Oxygen Delivery Method 12/06/22 00:55 12/06/22 00:55 12/06/22 01:00 Temperature Pulse Rate 59 L Respiratory Rate 24 Blood Pressure 99/57 L 110/59 L Pulse Oximetry 92 Oxygen Delivery Method 12/06/22 01:00 12/06/22 01:05 12/06/22 01:10 Temperature Pulse Rate 59 L 59 L 59 L Respiratory Rate 23 25 H 23 Blood Pressure Pulse Oximetry 93 95 94 Oxygen Delivery Method 12/06/22 01:15 12/06/22 01:20 12/06/22 01:25 Temperature 99.8 F H Pulse Rate 59 L 59 L 59 L Respiratory Rate 23 24 25 H Blood Pressure Pulse Oximetry 94 95 94 Oxygen Delivery Method 12/06/22 01:30 12/06/22 01:30 12/06/22 01:35 Temperature Pulse Rate 59 L 59 L Respiratory Rate 23 23 Blood Pressure 96/56 L Pulse Oximetry 94 94 Oxygen Delivery Method 12/06/22 01:40 12/06/22 01:45 12/06/22 01:50 Temperature Pulse Rate 59 L 59 L 60 Respiratory Rate 22 22 22 Blood Pressure Pulse Oximetry 92 95 95 Oxygen Delivery Method 12/06/22 01:55 12/06/22 02:00 12/06/22 02:00 Temperature Pulse Rate 60 60 Respiratory Rate 24 24 Blood Pressure 95/60 Pulse Oximetry 94 95 Oxygen Delivery Method 12/06/22 02:05 12/06/22 02:10 12/06/22 02:15 Temperature Pulse Rate 60 60 60 Respiratory Rate 22 25 H 21 Blood Pressure Pulse Oximetry 95 94 94 Oxygen Delivery Method 12/06/22 02:20 Temperature 101 F H Pulse Rate 60 Respiratory Rate 21 Blood Pressure Pulse Oximetry 93 Oxygen Delivery Method Oxygen Delivery Method Room Air Narrative Exam Narrative: GEN: Alert and oriented x 3. Does not appear toxic HEENT: Normocephalic. NECK: No lumps, JVD, or bruit CVS: S1 + S2 per nursing RESP: + Coarse anterior rhonchi. No wheezing GIT: Soft, nontender, + Bowel Sounds EXTR: 2+ pulses. + LLE swelling and redness alond his shins and right medial malleolus NEURO: . No gross focal motor deficits SKIN: as above Objective ECG Impression: V paced as per HPI Imaging Chest x-ray: My impression: Agree with radiology read Radiologist's impression: IMPRESSION:? Bibasilar curvilinear opacities favored to represent atelectasis with infection not excluded. ? ? Dictated by: George Tucker M.D. on 12/05/2022 at 14:29 ? ? Approved by: George Tucker M.D. on 12/05/2022 at 14:30 ? CT LEFT LEG WO Contrast: My impression: per report + there is a pin in the left tibia from prior surgery Radiologist's impression: IMPRESSION:? ? 1. Subcutaneous edema within the distal left lower extremity is nonspecific and may represent cellulitis.? No discrete loculated peripherally enhancing fluid collection to suggest an abscess. ? 2. Osteoarthritic changes of the left knee including severe degeneration of the patellofemoral compartment. ? 3. Left knee chondrocalcinosis is nonspecific but may reflect CPPD arthropathy. ? Dictated by: Adryan Cho M.D. on 12/06/2022 at 1:34 ? ? Approved by: Adryan Cho M.D. on 12/06/2022 at 1:40 ? Labs 12/05/22 16:01 12/05/22 16:01 Labs: Laboratory Results - last 24 hr 12/05/22 12/05/22 12/05/22 14:20 14:40 16:01 WBC 11.8 H RBC 3.69 L Hgb 12.3 L Hct 35.8 L MCV 97.1 MCH 33.3 MCHC 34.3 RDW 14.1 Plt Count 171 Neut % (Auto) 96.2 H Lymph % (Auto) 1.6 L Summers % (Auto) 1.9 L Eos % (Auto) 0.0 L Baso % (Auto) 0.3 Neut # (Auto) 57486 H Lymph # (Auto) 200 L Summers # (Auto) 200 Eos # (Auto) 0 Baso # (Auto) 0 PT INR APTT Sodium Potassium Chloride Carbon Dioxide BUN Creatinine Estimated GFR BUN/Creatinine Ratio Glucose Lactate Calcium Total Bilirubin AST ALT Alkaline Phosphatase Total Protein Albumin Globulin Albumin/Globulin Ratio Lipase Procalcitonin Urine RBC 1-5/hpf Urine WBC 0-1/hpf Ur Squamous Epith Cells 0-1 /hpf Urine Bacteria Few (2-10) H Ur Culture Indicated? Cult not indicated Chlamy pneumoniae PCR Not detected Adenovirus (PCR) Not detected B. pertussis DNA (PCR) Not detected B.parapertussis DNA PCR Not detected Coronavirus OC43 (PCR) Not detected Coronavirus HKU1 (PCR) Not detected Coronavirus 229E (PCR) Not detected SARS-CoV-2 (PCR) Not detected Coronavirus NL63 (PCR) Not detected Human Metapneumovir PCR Not detected Influenza Type A (PCR) Not detected Influenza Type B (PCR) Not detected M. pneumoniae (PCR) Not detected Parainfluenza 1 (PCR) Not detected Parainfluenza 2 (PCR) Not detected Parainfluenza 3 (PCR) Not detected Parainfluenza 4 (PCR) Not detected RSV (PCR) Not detected Entero/Rhino (PCR) Not detected 12/05/22 12/05/22 12/05/22 16:01 16:01 16:01 WBC RBC Hgb Hct MCV MCH MCHC RDW Plt Count Neut % (Auto) Lymph % (Auto) Summers % (Auto) Eos % (Auto) Baso % (Auto) Neut # (Auto) Lymph # (Auto) Summers # (Auto) Eos # (Auto) Baso # (Auto) PT 15.5 H INR 1.3 APTT 29 Sodium 137 Potassium 4.2 Chloride 101 Carbon Dioxide 27 BUN 42 H Creatinine 1.92 H Estimated GFR 36 L BUN/Creatinine Ratio 21.9 Glucose 94 Lactate 2.5 H Calcium 9.5 Total Bilirubin 1.5 H AST 36 ALT 30 Alkaline Phosphatase 67 Total Protein 7.8 Albumin 4.3 Globulin 3.5 Albumin/Globulin Ratio 1.2 Lipase 174 Procalcitonin 1.82 H Urine RBC Urine WBC Ur Squamous Epith Cells Urine Bacteria Ur Culture Indicated? Chlamy pneumoniae PCR Adenovirus (PCR) B. pertussis DNA (PCR) B.parapertussis DNA PCR Coronavirus OC43 (PCR) Coronavirus HKU1 (PCR) Coronavirus 229E (PCR) SARS-CoV-2 (PCR) Coronavirus NL63 (PCR) Human Metapneumovir PCR Influenza Type A (PCR) Influenza Type B (PCR) M. pneumoniae (PCR) Parainfluenza 1 (PCR) Parainfluenza 2 (PCR) Parainfluenza 3 (PCR) Parainfluenza 4 (PCR) RSV (PCR) Entero/Rhino (PCR) 12/05/22 18:15 WBC RBC Hgb Hct MCV MCH MCHC RDW Plt Count Neut % (Auto) Lymph % (Auto) Summers % (Auto) Eos % (Auto) Baso % (Auto) Neut # (Auto) Lymph # (Auto) Summers # (Auto) Eos # (Auto) Baso # (Auto) PT INR APTT Sodium Potassium Chloride Carbon Dioxide BUN Creatinine Estimated GFR BUN/Creatinine Ratio Glucose Lactate 1.2 Calcium Total Bilirubin AST ALT Alkaline Phosphatase Total Protein Albumin Globulin Albumin/Globulin Ratio Lipase Procalcitonin Urine RBC Urine WBC Ur Squamous Epith Cells Urine Bacteria Ur Culture Indicated? Chlamy pneumoniae PCR Adenovirus (PCR) B. pertussis DNA (PCR) B.parapertussis DNA PCR Coronavirus OC43 (PCR) Coronavirus HKU1 (PCR) Coronavirus 229E (PCR) SARS-CoV-2 (PCR) Coronavirus NL63 (PCR) Human Metapneumovir PCR Influenza Type A (PCR) Influenza Type B (PCR) M. pneumoniae (PCR) Parainfluenza 1 (PCR) Parainfluenza 2 (PCR) Parainfluenza 3 (PCR) Parainfluenza 4 (PCR) RSV (PCR) Entero/Rhino (PCR) Assessment & Plan Assessment and plan (1) Hypotension: Qualifiers: Hypotension type: other hypotension type Qualified Code(s): I95.89 - Other hypotension Status: Acute (2) Cellulitis of left lower extremity: Status: Acute (3) Sepsis: Qualifiers: Sepsis type: sepsis due to unspecified organism Severe sepsis shock status: without septic shock Status: Acute Assessment & Plan narrative: 72-year-old gentleman with a history of atrial fibrillation, bradycardia, Micra pacemaker 05/2022, multiple vascular aneurysms, hypertension, FARIDEH, CKD stage IIIb, and a left lower extremity abscess with sepsis requiring incision and drainage 03/2022. He is admitted with fever, chills, cellulitis redness, with associated severe sepsis and hypotension. #Severe sepsis + hypotension ?fluid responsive #Left lower extremity cellulitis on CT and by exam #03/2022 left lower extremity cellulitis/abscess requiring incision and drainage: Culture negative Left lower extremity cellulitis and abscess with culture-negative septic shock 03/2022 Extensive history chronicled above for and left leg 02/2022 while visiting [place] treated with antibiotics. Progressed to abscess with cellulitis + shock + ATN 03/2022. Had incision and drainage which was cultured negative. MRSA/MSSA nasal swabs were negative. Creatinine improved from 5 back to 1.9. Now has fever, chills, fluid responsive hypotension and suspected recurrence of left lower extremity cellulitis. Leukocytosis and elevated procalcitonin noted. Lactate 2.5 improved with 30 cc/KG bolus. LLE CT suggest cellulitis Bilateral IJ central line was unsuccessful asked to Clinically doubt there is pneumonia. Bibasilar atelectasis on chest x-ray noted. UA is negative along with COVID-19 screen Has gallstones but no abdominal pain or significant elevated LFTs dDX includes endocarditis or occult GI/Chest infection. ? Rocephin + azithromycin >>> broadened to Zosyn + Zyvox ?Normal saline + pressors as needed ?Severe sepsis protocols ?Follow-up blood cultures ? Picc line and start norepinephrine due to sepsis and risk of recurrent ATN CKD stage IIIb: 1.9-2.5 Had ATN due to hypotension in March when he had sepsis and hypotension. Cr was 5.0 High risk for recurrent ZITA/ATN -IV fluids -Start Norepinephrine to keep MAP>65 MED REC -Reviewed DVT Risk -Apixiban: Hold AM dose for primary team to review CODE STATUS: -Full code FEN -Normal saline # SECONDARY PROBLEMS Neuropathy Permanent atrial fibrillation Bradycardia: Leadless pacemaker 06/02/2022 Hypertension - hold nifedipine Aortic stenosis: Mild Pulmonary hypertension AAA 3.9 + bilateral common iliac aneurysms 3.5 + RI Ilac + bilateral popliteal artery aneurysms - Followed by vascular surgery Pansinusitis FARIDEH + CPAP - hold due to hypotension Cholelithasis Microsopic hematuria Hyperlipidemia - Atorvastatin Hypothyroid - [place] thyroid Eliquis anticoagulation - Hold Eliquis in case of procedures Osteoporosis - hold alendronate and Vit D + Calcium Glaucoma - latanoprost + timolol COVID-19 infection 08/12 COVID-19 COVID-19 status: Negative
[2022-12-06] MEDS: ACETAMINOPHEN 325 MG TABLET 650 MG PO ×5 (02:31→22:32)
[2022-12-06] MEDS: SODIUM CHLORIDE 0.9% 1,000 ML 150 ML IV ×3 (04:01→18:41)
[2022-12-06] MEDS: PIPERACILLIN/TAZO 3.375 GM in SODIUM CHLORIDE 0.9% 100 ML IV ×3 (04:21→20:05)
[2022-12-06 05:03] LABS: MRSA (Nasal) PCR Not Detected (Not Detect)
[2022-12-06 05:37] LABS: Enterococcus faecalis Not Detected (Not Detect); Enterococcus faecium Not Detected (Not Detect); Listeria monocytogenes Not Detected (Not Detect); Staphylococcus epidermidis Not Detected (Not Detect); Staphylococcus lugdunensis Not Detected (Not Detect); Staphylococcus species Not Detected (Not Detect)
[2022-12-06 05:38] LABS: Acinetobacter calcoa-baumannii Not Detected (Not Detect); Bacteroides fragilis Not Detected (Not Detect); Enterobacterales Not Detected (Not Detect); Streptococcus agalactiae (Gr B Not Detected (Not Detect); Streptococcus pneumonia Not Detected (Not Detect); Streptococcus pyogenes (Gr A) Not Detected (Not Detect); Streptococcus species DETECTED (Not Detect)
[2022-12-06 05:39] LABS: Candida albicans Not Detected (Not Detect); Candida auris Not Detected (Not Detect); Candida glabrata Not Detected (Not Detect); Candida krusei Not Detected (Not Detect); Candida parapsilosis Not Detected (Not Detect); Candida tropicalis Not Detected (Not Detect); Cryptococcus neoformans/gatti Not Detected (Not Detect); Enterobacter cloacae complex Not Detected (Not Detect); Haemophilus influenzae Not Detected (Not Detect); Klebsiella aerogenes Not Detected (Not Detect); Neisseria meningitidis Not Detected (Not Detect); Proteus species Not Detected (Not Detect); Pseudomonas aeruginosa Not Detected (Not Detect); Salmonella species Not Detected (Not Detect); Serratia marcescens Not Detected (Not Detect); Stenotrophomonas maltophilia Not Detected (Not Detect)
[2022-12-06 06:06] LABS: Add Manual Diff / Slide Review NO; Basophils Absolute Auto 0 /uL (0-100); Basophils Percent Auto 0.4 % (0-2); Eosinophils Absolute Auto 0 /uL (0-450); Hematocrit 34.3 % (41-53); Hemoglobin 11.7 g/dL (13.5-17.5); Lymphocytes Absolute Auto 400 /uL (1100-4500); Lymphocytes Percent Auto 3.4 % (25-40); Mean Corpuscular HGB Conc 34.2 % (30-36); Mean Corpuscular Hemoglobin 33.2 PG (26-34); Mean Corpuscular Volume 97.3 fL (80-100); Monocytes Absolute Auto 300 /uL (0-900); Neutrophils Absolute Auto 10600 /uL (1500-7000); Neutrophils Percent Auto 93.2 % (50-75); Platelet Count 125 X10^3/uL (150-400); Red Blood Cell Count 3.52 X10^6/uL (4.5-5.9); Red Cell Distribution Width 13.9 % (11.6-14.8); White Blood Cell Count 11.4 X10^3/uL (4.5-11.0)
[2022-12-06 06:18] LABS: Alanine Aminotransferase 25 IU/L (<50); Albumin 3.3 g/dL (3.5-5.0); Albumin Globulin Ratio 1.1 (1.0-2.8); Alkaline Phosphatase 50 U/L (38-126); Aspartate Aminotransferase 35 IU/L (17-59); BUN Creatinine Ratio 17.5 (6-22); Bilirubin Total 1.1 mg/dL (0.2-1.3); Blood Urea Nitrogen 36 mg/dL (9-20); Calcium 8.1 mg/dL (8.4-10.2); Carbon Dioxide 24 mmol/L (22-32); Chloride 103 mmol/L (98-107); Estimated Glomerular Filt Rate 33 mL/min (>60); Globulin 2.9 g/dL (1.7-4.1); Glucose 103 mg/dL (80-110); HEMOLYSIS < 15 (0-50); Potassium 4.1 mmol/L (3.4-5.1); Sodium 134 mmol/L (137-145); Total Protein 6.2 g/dL (6.3-8.2)
[2022-12-06] MEDS: NOREPINEPHRINE BITARTRATE/D5W 4 MG/250 ML PLAST..BAG 15 MG IV (06:32)
--- NOTE | 2022-12-06 06:59 | PC.NURSE ---
Admit Note-Patient brought to ICU room 229 at 0330. A/Ox4, fatigued but able to transfer to bed, then later ambulated into BR with SBA and walker, denies chest pain, shortness of breath, or dizziness. Paced rhythm, BP low but stable, Tele-Hospitalist ordered Levophed to be started to keep MAP > 65, NS @150ml/hr. LLE marked where edema and erythema are present.
--- NOTE | 2022-12-06 09:24 | DI.CT.S_ITS ---
PROCEDURE: CT CHEST ABD PEL WO CON INDICATIONS: septic shock, unknown source TECHNIQUE: After the administration of oral contrast, 5 mm thick sections acquired from the lung apices to the symphysis pubis. 5 mm thick coronal and sagittal reformats acquired, with additional 7 mm coronal MIP reformats through the lungs. For radiation dose reduction, the following was used: automated exposure control, adjustment of mA and/or kV according to patient size. COMPARISON: [facility], CT, CT LE LT WO CON, 12/06/2022, 0:13. FINDINGS: CHEST: Lungs and pleura: Small bilateral pleural effusions. Dependent opacities present bilaterally likely represent atelectasis. Mediastinum: Small pericardial effusion. Thoracic aorta and central pulmonary arteries are normal in size. Esophagus is normal in caliber. Chest wall: No axillary or supraclavicular adenopathy by size criteria. ABDOMEN: Solid organs: Liver is normal in size. Gallbladder is mildly distended with right upper quadrant fat stranding and fluid present. No definite radiopaque gallstones visualized. Pancreas is normal in contours. Spleen is normal in size. No adrenal nodules. Both kidneys are normal in size, without hydronephrosis or nephrolithiasis. Peritoneum and bowel: No evidence of mechanical small bowel obstruction. Large rectal stool ball present with perirectal stranding and fluid. Small amount of nonspecific pelvic free fluid, near water density. Mesenteric edema and fluid and right upper quadrant edema and fluid as above. Nonspecific fluid/stranding also present at the left lower quadrant. Nodes and vessels: An infrarenal abdominal aortic aneurysm is present measuring up to 3.6 centimeters. Aneurysmal dilation of both common iliac arteries also present, left measuring up to 3.6 centimeters, right measuring 3.1 centimeters. Left lower quadrant fat stranding and fluid described above is present about the left external iliac artery. Aneurysmal dilation of the right internal iliac artery also present. PELVIS: Genitourinary: Bladder wall thickness is normal. Miscellaneous: Left groin/inguinal adenopathy and subcutaneous edema present. Bones: Multilevel degenerative change of the visualized spine. IMPRESSION: 1. Left groin/inguinal adenopathy and subcutaneous edema are present. Findings could represent cellulitis with reactive adenopathy but are nonspecific. 2. The gallbladder is mildly distended without radiopaque gallstones visualized. Fat stranding and fluid are present adjacent to the gallbladder, but are also present elsewhere within the abdomen and are nonspecific. If there is clinical suspicion for cholecystitis abdominal ultrasound may be helpful for further evaluation. 3. Abdominal aortic aneurysm and aneurysmal dilation of both common iliac arteries. Nonspecific fat stranding and fluid is present adjacent to the left external iliac artery, leaking left common iliac artery aneurysm not excludable. If clinically indicated CT angiogram of the abdomen and pelvis could be obtained for further evaluation. 4. Large rectal stool ball with adjacent perirectal fat stranding fluid, could indicate changes of stercoral colitis. 5. Small bilateral pleural effusions. Small pericardial effusion. Dictated by: Heri Anthony M.D. on 12/06/2022 at 10:34 Approved by: Heri Anthony M.D. on 12/06/2022 at 10:59
[2022-12-06] MEDS: TIMOLOL 0.5% OPHTH 1 DROPS EYE-BOTH (09:27)
[2022-12-06] MEDS: THYROID, PORK 30 MG TABLET PO (09:28)
--- NOTE | 2022-12-06 09:49 | P.TELICUCN_ITS ---
History of Present Illness Consult details IF CAMERA ACTIVATED, patient seen via real-time interactive audiovisual communication: Camera activated Chief complaint: thinks recurrance of sistemic bacterial inf Consent obtained for tele-motor power connector care: Yes Patient Location: ICU Provider location (State): [place] Other participants/roles: Bedside RN, charge nurse, Hospitalist Narrative: Patient was examined using two-way interactive audiovisual equipment. Briefly, Mr. Rizo is a 72 years old gentleman with known history of atrial fibrillation on Eliquis at home, bradycardia, status post pacemaker placement in 05/2022, multiple vascular aneurysms, hypertension, FARIDEH, CKD stage IIIb, recent hospitalization for left lower extremity abscess with sepsis requiring incision and drainage in 03/2022 who presented to ED last night for evaluation of fever, chills and redness in his left lower extremity.? On arrival to ER, his temperature was 101.1 ?F, blood pressure 110/59, heart rate 59 and RR 23/min.? He was on room air and saturating 96%.? Soon after arrival to ER, he became hypotensive with SBP in 70s, received 4 L of IV fluid boluses and then eventually required to be placed on norepinephrine gtt. overnight to maintain MAP >65.? Initial work-up was remarkable for procalcitonin 1.82, lactic acid of 3.5, WBC 11.8. ?2 sets of blood cultures now with growth of Streptococcus. ?eICU consulted for further input and comanagement. This morning, when evaluated via Camera, patient is awake, oriented x3, in no apparent distress.? He is currently on room air and saturating 96%.? He is able to speak in full sentences.? Denies any chest pain, shortness of breath, nausea/vomiting abdominal pain, diarrhea or urinary symptoms.? He still remains on norepinephrine gtt., currently down to 2 mcg/min to maintain MAP >65.? Lactic acid now down to 1.2.? Has descent urine output. He had a CT of left lower extremity that shows findings concerning for left lower leg cellulitis. Assessment/Plan: # Septic shock, presumed source left leg cellulitis /streptococcal bacteremia: - Received 4 L of IV fluid bolus in the ED per 30 cc/kg sepsis protocol but remained hypotensive and required to be started on vasopressors. - Repeat and follow blood cultures this a.m. - Continue with broad-spectrum antibiotics linezolid and Zosyn pending final culture/sensitivity. - Monitor markers of tissue perfusion (lactate clearance, base deficit, mental status, urine out). - Titrate pressors (Norepinephrine) to keep MAP > 65. Add vasopressin if necessary. - Ordered 2D echocardiogram.? If repeat blood cultures come back positive, may need to evaluate with SUJEY to rule out vegetation. # Atrial fibrillation, heart rate controlled - Heart rate controlled - Resume Eliquis for therapeutic anticoagulation # CKD stage IIIb -stable. - Renal functions stable at baseline. ? - Monitor with serial BMP, strict input and output. -Avoid nephrotoxic medications.? Renally dose medications when appropriate. # Bradycardia status post pacemaker placement ICU Core Bundle: # FEN: Regular diet, continue with maintenance IV fluids # Glucose: fairly controlled. C/w Accu checks before meals and at bedtime and SSI. BG goal 140-180 # Prophylaxis: Eliquis to be resumed for DVT prophylaxis, PPI for stress ulcer prophylaxis # Lines/tubes: PIV, PICC line ordered by hospitalist # CODE STATUS: Full code # Disposition: Remains in ICU Above plan was discussed with rounding team including hospitalist, bedside RN, and pharmacist during tele-ICU multidisciplinary rounds this morning.? We will continue to follow.? Please call us if any additional questions. [facility] Medical History (Updated 12/06/22 @ 05:11 by Fortino Menjivar DO) AAA (abdominal aortic aneurysm) Abscess of left lower extremity Anticoagulant long-term use Atrial fibrillation Cholelithiasis COVID-19 virus infection Glaucoma Hyperlipidemia Hypertension Hypothyroid FARIDEH (obstructive sleep apnea) Osteoporosis Pacemaker Pulmonary hypertension Stage 3b chronic kidney disease (CKD) Social History household members: spouse Smoking Status: Never smoker alcohol intake: current Current Medications Current Medications Medications: Home Medications alendronate 70 mg tablet 70 mg PO DAILY 12/05/22 [History Confirmed 12/06/22] apixaban 5 mg tablet (Eliquis) 5 mg PO BID 12/05/22 [History Confirmed 12/06/22] atorvastatin 40 mg tablet 40 mg PO ONCE PM 12/05/22 [History Confirmed 12/06/22] calcium citrate 200 mg (950 mg) tablet 1,800 mg PO Q OTHER DAY 12/05/22 [History Confirmed 12/06/22] cholecalciferol (vitamin D3) 50 mcg (2,000 unit) capsule 50 mcg PO DAILY 12/05/22 [History Confirmed 12/06/22] latanoprost 0.005 % eye drops 1 drp EYE-BOTH QPM 12/05/22 [History Confirmed 12/06/22] nifedipine 30 mg tablet,extended release 24 hr 30 mg PO DAILY 12/05/22 [History Confirmed 12/06/22] thyroid (pork) 30 mg tablet ([place] Thyroid) 30 mg PO QAM 12/05/22 [History Confirmed 12/06/22] timolol maleate 0.5 % eye drops 1 drp EYE-BOTH QAM 12/05/22 [History Confirmed 12/06/22] Visit Medications (administered) Generic Name Dose Route Start Last Admin Trade Name Freq PRN Reason Stop Dose Admin Acetaminophen 650 mg 12/06/22 02:12 12/06/22 08:01 Acetaminophen 325 Mg Tablet PO 650 mg Q6H PRN Administration Fever/Mild Pain (1-3) Sodium Chloride 1,000 mls @ 150 mls/hr 12/06/22 02:00 12/06/22 04:01 Normal Saline 0.9% IV 150 mls/hr CONT PRASANTH Administration NOREPINEPHRINE BITARTRATE/D5W 4 mg in 250 mls @ 30 mls/hr 12/06/22 02:00 12/06/22 08:05 Levophed IV 2 mcg/min TITRATE PRASANTH 7.5 mls/hr Titration Protocol 8 MCG/MIN Piperacillin Sod/Tazobactam 100 mls @ 25 mls/hr 12/06/22 04:00 12/06/22 04:21 Sod 3.375 gm/ Sodium Chloride IV 25 mls/hr Q8H PRASANTH Administration Thyroid 30 mg 12/06/22 07:00 12/06/22 09:28 Thyroid, Pork 30 Mg Tablet PO 30 mg QACBREAK PRASANTH Administration Timolol Maleate 1 drops 12/06/22 09:00 12/06/22 09:27 Timolol 0.5% Ophth EYE-BOTH 1 drop DAILY PRASANTH Administration Review of Systems Review of Systems Narrative: Complete 10 point ROS obtained and negative except mentioned in HPI. Exam Vital Signs (past 8 hours): - 12/06/22 01:50 12/06/22 01:55 12/06/22 02:00 Temperature Pulse Rate 60 60 Respiratory Rate 22 24 Blood Pressure 95/60 Pulse Oximetry 95 94 Oxygen Delivery Method 12/06/22 02:00 12/06/22 02:05 12/06/22 02:10 Temperature Pulse Rate 60 60 60 Respiratory Rate 24 22 25 H Blood Pressure Pulse Oximetry 95 95 94 Oxygen Delivery Method 12/06/22 02:15 12/06/22 02:20 12/06/22 02:31 Temperature 101 F H 101 F H Pulse Rate 60 60 Respiratory Rate 21 21 Blood Pressure Pulse Oximetry 94 93 Oxygen Delivery Method 12/06/22 03:33 12/06/22 03:22 12/06/22 03:22 Temperature 102.1 F H 99.4 F 99.4 F Pulse Rate 71 61 61 Respiratory Rate 18 20 20 Blood Pressure 104/63 101/56 L 101/56 L Pulse Oximetry 93 95 93 Oxygen Delivery Method Room Air 12/06/22 02:31 12/06/22 02:31 12/06/22 03:00 Temperature Pulse Rate 60 Respiratory Rate 27 H Blood Pressure 112/66 124/62 Pulse Oximetry 93 Oxygen Delivery Method 12/06/22 03:00 12/06/22 03:27 12/06/22 03:27 Temperature Pulse Rate 60 62 Respiratory Rate 25 H 26 H Blood Pressure 101/56 L Pulse Oximetry 92 88 L Oxygen Delivery Method 12/06/22 04:02 12/06/22 04:02 12/06/22 04:05 Temperature Pulse Rate 60 60 Respiratory Rate 25 H 27 H Blood Pressure 99/56 L Pulse Oximetry 94 95 Oxygen Delivery Method 12/06/22 04:05 12/06/22 04:27 12/06/22 04:27 Temperature Pulse Rate 60 Respiratory Rate 26 H Blood Pressure 88/52 L 89/58 L Pulse Oximetry 97 Oxygen Delivery Method 12/06/22 04:30 12/06/22 04:30 12/06/22 04:35 Temperature Pulse Rate 60 60 Respiratory Rate 22 25 H Blood Pressure 95/59 L Pulse Oximetry 95 94 Oxygen Delivery Method 12/06/22 05:00 12/06/22 05:00 12/06/22 05:18 Temperature 99.2 F Pulse Rate 60 66 Respiratory Rate 24 28 H Blood Pressure 114/65 Pulse Oximetry 96 96 Oxygen Delivery Method 12/06/22 05:18 12/06/22 05:20 12/06/22 04:00 Temperature Pulse Rate 62 Respiratory Rate 28 H Blood Pressure 112/65 Pulse Oximetry 100 Oxygen Delivery Method Room Air 12/06/22 05:30 12/06/22 05:30 12/06/22 06:00 Temperature Pulse Rate 60 Respiratory Rate 21 Blood Pressure 108/62 102/61 Pulse Oximetry 93 Oxygen Delivery Method 12/06/22 06:00 12/06/22 06:30 12/06/22 06:30 Temperature Pulse Rate 60 60 Respiratory Rate 21 23 Blood Pressure 98/56 L Pulse Oximetry 96 97 Oxygen Delivery Method 12/06/22 07:01 12/06/22 07:01 12/06/22 07:30 Temperature Pulse Rate 62 61 Respiratory Rate 32 H 27 H Blood Pressure 113/65 Pulse Oximetry 98 97 Oxygen Delivery Method 12/06/22 07:30 12/06/22 07:36 12/06/22 06:05 Temperature Pulse Rate 60 60 Respiratory Rate 26 H 22 Blood Pressure 116/72 Pulse Oximetry 98 95 Oxygen Delivery Method 12/06/22 06:10 12/06/22 06:15 12/06/22 06:20 Temperature Pulse Rate 60 60 60 Respiratory Rate 24 20 21 Blood Pressure Pulse Oximetry 94 88 L 89 L Oxygen Delivery Method 12/06/22 06:25 12/06/22 06:35 12/06/22 06:40 Temperature Pulse Rate 60 60 60 Respiratory Rate 22 22 21 Blood Pressure Pulse Oximetry 93 97 95 Oxygen Delivery Method 12/06/22 06:45 12/06/22 06:50 12/06/22 06:55 Temperature Pulse Rate 60 60 60 Respiratory Rate 20 22 21 Blood Pressure Pulse Oximetry 95 96 95 Oxygen Delivery Method 12/06/22 07:00 12/06/22 07:05 12/06/22 07:10 Temperature Pulse Rate 62 60 60 Respiratory Rate 28 H 24 20 Blood Pressure Pulse Oximetry 91 98 96 Oxygen Delivery Method 12/06/22 07:15 12/06/22 07:20 12/06/22 07:25 Temperature Pulse Rate 60 60 60 Respiratory Rate 21 22 19 Blood Pressure Pulse Oximetry 97 96 97 Oxygen Delivery Method 12/06/22 07:35 12/06/22 07:40 12/06/22 07:45 Temperature Pulse Rate 60 60 60 Respiratory Rate 24 24 21 Blood Pressure Pulse Oximetry 98 97 95 Oxygen Delivery Method 12/06/22 07:50 12/06/22 07:55 12/06/22 08:00 Temperature Pulse Rate 60 60 60 Respiratory Rate 27 H 21 21 Blood Pressure Pulse Oximetry 94 96 96 Oxygen Delivery Method 12/06/22 08:22 12/06/22 08:49 12/06/22 08:01 Temperature 98.1 F Pulse Rate 60 Respiratory Rate 23 Blood Pressure Pulse Oximetry 92 Oxygen Delivery Method Room Air 12/06/22 08:01 12/06/22 08:05 12/06/22 08:10 Temperature Pulse Rate 60 60 Respiratory Rate 27 H 19 Blood Pressure 138/69 Pulse Oximetry 98 97 Oxygen Delivery Method 12/06/22 08:15 12/06/22 08:20 12/06/22 08:25 Temperature Pulse Rate 60 60 60 Respiratory Rate 28 H 28 H 23 Blood Pressure Pulse Oximetry 95 96 94 Oxygen Delivery Method 12/06/22 08:30 12/06/22 08:31 12/06/22 08:31 Temperature Pulse Rate 60 60 Respiratory Rate 28 H 26 H Blood Pressure 102/62 Pulse Oximetry 95 95 Oxygen Delivery Method 12/06/22 08:35 12/06/22 08:40 12/06/22 08:45 Temperature Pulse Rate 60 64 61 Respiratory Rate 29 H 32 H 23 Blood Pressure Pulse Oximetry 95 Oxygen Delivery Method 12/06/22 08:50 12/06/22 08:55 12/06/22 09:00 Temperature Pulse Rate 60 61 Respiratory Rate 25 H 25 H Blood Pressure 93/64 Pulse Oximetry Oxygen Delivery Method 12/06/22 09:00 12/06/22 09:05 12/06/22 09:28 Temperature 99.4 F Pulse Rate 62 61 Respiratory Rate 29 H 29 H Blood Pressure Pulse Oximetry 93 Oxygen Delivery Method Oxygen Delivery Method Room Air Narrative Exam Narrative: This morning, when evaluated via Camera, patient is awake, oriented x3, in no apparent distress.? He is currently on room air and saturating 96%.? He is able to speak in full sentences. Objective Labs 12/06/22 05:56 12/06/22 05:56 Labs: Laboratory Results - last 24 hr 12/05/22 12/05/22 12/05/22 14:20 14:40 16:01 WBC 11.8 H RBC 3.69 L Hgb 12.3 L Hct 35.8 L MCV 97.1 MCH 33.3 MCHC 34.3 RDW 14.1 Plt Count 171 Neut % (Auto) 96.2 H Lymph % (Auto) 1.6 L [place] % (Auto) 1.9 L Eos % (Auto) 0.0 L Baso % (Auto) 0.3 Neut # (Auto) 76911 H Lymph # (Auto) 200 L [place] # (Auto) 200 Eos # (Auto) 0 Baso # (Auto) 0 PT INR APTT Sodium Potassium Chloride Carbon Dioxide BUN Creatinine Estimated GFR BUN/Creatinine Ratio Glucose Lactate Calcium Total Bilirubin AST ALT Alkaline Phosphatase Total Protein Albumin Globulin Albumin/Globulin Ratio Lipase Procalcitonin Urine RBC 1-5/hpf Urine WBC 0-1/hpf Ur Squamous Epith Cells 0-1 /hpf Urine Bacteria Few (2-10) H Ur Culture Indicated? Cult not indicated Nasal Screen MRSA (PCR) A.calcoaceticus-baumannii cmplx PCR Chlamy pneumoniae PCR Not detected Adenovirus (PCR) Not detected Bacteroides fragilis B. pertussis DNA (PCR) Not detected B.parapertussis DNA PCR Not detected Lisa albicans (PCR) Lisa auris (PCR) C. glabrata (PCR) C. krusei (PCR) C. parapsilosis (PCR) C. tropicalis (PCR) Coronavirus OC43 (PCR) Not detected Coronavirus HKU1 (PCR) Not detected Coronavirus 229E (PCR) Not detected SARS-CoV-2 (PCR) Not detected Coronavirus NL63 (PCR) Not detected C. neoform/gattii (PCR) Enterobacterales (PCR) E. cloacae complex PCR Enterococc faecalis PCR Enterococc faecium PCR E. coli (PCR) H. influenzae (PCR) Human Metapneumovir PCR Not detected Influenza Type A (PCR) Not detected Influenza Type B (PCR) Not detected Klebsiella aerogenes (PCR) Klebsiella oxytoca PCR Klebsiella pneumoniae List. monocytogenes PCR M. pneumoniae (PCR) Not detected N. meningitidis (PCR) Parainfluenza 1 (PCR) Not detected Parainfluenza 2 (PCR) Not detected Parainfluenza 3 (PCR) Not detected Parainfluenza 4 (PCR) Not detected Proteus species (PCR) RSV (PCR) Not detected Entero/Rhino (PCR) Not detected Salmonella spp. (PCR) Serratia marcescens PCR Staphylococcus sp PCR Staph aureus (PCR) Staph epidermidis (PCR) Staph lugdunensis PCR S. maltophilia (PCR) Streptococcus sp PCR Group A Strep (PCR) Strep agalactiae (PCR) Strep pneumoniae (PCR) P. aeruginosa (PCR) 12/05/22 12/05/22 12/05/22 16:01 16:01 16:01 WBC RBC Hgb Hct MCV MCH MCHC RDW Plt Count Neut % (Auto) Lymph % (Auto) [place] % (Auto) Eos % (Auto) Baso % (Auto) Neut # (Auto) Lymph # (Auto) [place] # (Auto) Eos # (Auto) Baso # (Auto) PT 15.5 H INR 1.3 APTT 29 Sodium 137 Potassium 4.2 Chloride 101 Carbon Dioxide 27 BUN 42 H Creatinine 1.92 H Estimated GFR 36 L BUN/Creatinine Ratio 21.9 Glucose 94 Lactate 2.5 H Calcium 9.5 Total Bilirubin 1.5 H AST 36 ALT 30 Alkaline Phosphatase 67 Total Protein 7.8 Albumin 4.3 Globulin 3.5 Albumin/Globulin Ratio 1.2 Lipase 174 Procalcitonin 1.82 H Urine RBC Urine WBC Ur Squamous Epith Cells Urine Bacteria Ur Culture Indicated? Nasal Screen MRSA (PCR) A.calcoaceticus-baumannii cmplx PCR Chlamy pneumoniae PCR Adenovirus (PCR) Bacteroides fragilis B. pertussis DNA (PCR) B.parapertussis DNA PCR Lisa albicans (PCR) Lisa auris (PCR) C. glabrata (PCR) C. krusei (PCR) C. parapsilosis (PCR) C. tropicalis (PCR) Coronavirus OC43 (PCR) Coronavirus HKU1 (PCR) Coronavirus 229E (PCR) SARS-CoV-2 (PCR) Coronavirus NL63 (PCR) C. neoform/gattii (PCR) Enterobacterales (PCR) E. cloacae complex PCR Enterococc faecalis PCR Enterococc faecium PCR E. coli (PCR) H. influenzae (PCR) Human Metapneumovir PCR Influenza Type A (PCR) Influenza Type B (PCR) Klebsiella aerogenes (PCR) Klebsiella oxytoca PCR Klebsiella pneumoniae List. monocytogenes PCR M. pneumoniae (PCR) N. meningitidis (PCR) Parainfluenza 1 (PCR) Parainfluenza 2 (PCR) Parainfluenza 3 (PCR) Parainfluenza 4 (PCR) Proteus species (PCR) RSV (PCR) Entero/Rhino (PCR) Salmonella spp. (PCR) Serratia marcescens PCR Staphylococcus sp PCR Staph aureus (PCR) Staph epidermidis (PCR) Staph lugdunensis PCR S. maltophilia (PCR) Streptococcus sp PCR Group A Strep (PCR) Strep agalactiae (PCR) Strep pneumoniae (PCR) P. aeruginosa (PCR) 12/05/22 12/05/22 12/06/22 16:01 18:15 03:50 WBC RBC Hgb Hct MCV MCH MCHC RDW Plt Count Neut % (Auto) Lymph % (Auto) [place] % (Auto) Eos % (Auto) Baso % (Auto) Neut # (Auto) Lymph # (Auto) [place] # (Auto) Eos # (Auto) Baso # (Auto) PT INR APTT Sodium Potassium Chloride Carbon Dioxide BUN Creatinine Estimated GFR BUN/Creatinine Ratio Glucose Lactate 1.2 Calcium Total Bilirubin AST ALT Alkaline Phosphatase Total Protein Albumin Globulin Albumin/Globulin Ratio Lipase Procalcitonin Urine RBC Urine WBC Ur Squamous Epith Cells Urine Bacteria Ur Culture Indicated? Nasal Screen MRSA (PCR) Not detected A.calcoaceticus-baumannii cmplx PCR Not detected Chlamy pneumoniae PCR Adenovirus (PCR) Bacteroides fragilis Not detected B. pertussis DNA (PCR) B.parapertussis DNA PCR Lisa albicans (PCR) Not detected Lisa auris (PCR) Not detected C. glabrata (PCR) Not detected C. krusei (PCR) Not detected C. parapsilosis (PCR) Not detected C. tropicalis (PCR) Not detected Coronavirus OC43 (PCR) Coronavirus HKU1 (PCR) Coronavirus 229E (PCR) SARS-CoV-2 (PCR) Coronavirus NL63 (PCR) C. neoform/gattii (PCR) Not detected Enterobacterales (PCR) Not detected E. cloacae complex PCR Not detected Enterococc faecalis PCR Not detected Enterococc faecium PCR Not detected E. coli (PCR) Not detected H. influenzae (PCR) Not detected Human Metapneumovir PCR Influenza Type A (PCR) Influenza Type B (PCR) Klebsiella aerogenes (PCR) Not detected Klebsiella oxytoca PCR Not detected Klebsiella pneumoniae Not detected List. monocytogenes PCR Not detected M. pneumoniae (PCR) N. meningitidis (PCR) Not detected Parainfluenza 1 (PCR) Parainfluenza 2 (PCR) Parainfluenza 3 (PCR) Parainfluenza 4 (PCR) Proteus species (PCR) Not detected RSV (PCR) Entero/Rhino (PCR) Salmonella spp. (PCR) Not detected Serratia marcescens PCR Not detected Staphylococcus sp PCR Not detected Staph aureus (PCR) Not detected Staph epidermidis (PCR) Not detected Staph lugdunensis PCR Not detected S. maltophilia (PCR) Not detected Streptococcus sp PCR Detected H Group A Strep (PCR) Not detected Strep agalactiae (PCR) Not detected Strep pneumoniae (PCR) Not detected P. aeruginosa (PCR) Not detected 12/06/22 12/06/22 05:56 05:56 WBC 11.4 H RBC 3.52 L Hgb 11.7 L Hct 34.3 L MCV 97.3 MCH 33.2 MCHC 34.2 RDW 13.9 Plt Count 125 L Neut % (Auto) 93.2 H Lymph % (Auto) 3.4 L [place] % (Auto) 3.0 Eos % (Auto) 0.0 L Baso % (Auto) 0.4 Neut # (Auto) 23282 H Lymph # (Auto) 400 L [place] # (Auto) 300 Eos # (Auto) 0 Baso # (Auto) 0 PT INR APTT Sodium 134 L Potassium 4.1 Chloride 103 Carbon Dioxide 24 BUN 36 H Creatinine 2.06 H Estimated GFR 33 L BUN/Creatinine Ratio 17.5 Glucose 103 Lactate Calcium 8.1 L Total Bilirubin 1.1 AST 35 ALT 25 Alkaline Phosphatase 50 Total Protein 6.2 L Albumin 3.3 L Globulin 2.9 Albumin/Globulin Ratio 1.1 Lipase Procalcitonin Urine RBC Urine WBC Ur Squamous Epith Cells Urine Bacteria Ur Culture Indicated? Nasal Screen MRSA (PCR) A.calcoaceticus-baumannii cmplx PCR Chlamy pneumoniae PCR Adenovirus (PCR) Bacteroides fragilis B. pertussis DNA (PCR) B.parapertussis DNA PCR Lisa albicans (PCR) Lisa auris (PCR) C. glabrata (PCR) C. krusei (PCR) C. parapsilosis (PCR) C. tropicalis (PCR) Coronavirus OC43 (PCR) Coronavirus HKU1 (PCR) Coronavirus 229E (PCR) SARS-CoV-2 (PCR) Coronavirus NL63 (PCR) C. neoform/gattii (PCR) Enterobacterales (PCR) E. cloacae complex PCR Enterococc faecalis PCR Enterococc faecium PCR E. coli (PCR) H. influenzae (PCR) Human Metapneumovir PCR Influenza Type A (PCR) Influenza Type B (PCR) Klebsiella aerogenes (PCR) Klebsiella oxytoca PCR Klebsiella pneumoniae List. monocytogenes PCR M. pneumoniae (PCR) N. meningitidis (PCR) Parainfluenza 1 (PCR) Parainfluenza 2 (PCR) Parainfluenza 3 (PCR) Parainfluenza 4 (PCR) Proteus species (PCR) RSV (PCR) Entero/Rhino (PCR) Salmonella spp. (PCR) Serratia marcescens PCR Staphylococcus sp PCR Staph aureus (PCR) Staph epidermidis (PCR) Staph lugdunensis PCR S. maltophilia (PCR) Streptococcus sp PCR Group A Strep (PCR) Strep agalactiae (PCR) Strep pneumoniae (PCR) P. aeruginosa (PCR)
--- NOTE | 2022-12-06 10:40 | CM.DANOTE ---
Addendum entered by Ivanna Kelsey R.N. 12/07/22 14:49: Met with patient and spouse, Nuria, who is currently at bedside. Confirmed that her phone number is: [phone]. Incorrect area code was listed on face sheet. Also, confirmed that they will be staying on [facility] after discharge. Their address is: [address] [place] [address] [place]. Called Naun at [facility] [employer] and left him a message, gave him the updated address as to where patient will be staying. Discussed with patient and spouse the high probablity of him going home with IV ABO. Spouse and patient are ok with this, this is new to them. Also, in the message to Naun, asked if they would be doing his weekly PICC line dressing changes as well. Original Note: DCP: Case received, EMR reviewed and met with patient. Introduced self and role. Was able to obtain information regarding patient's baseline activity level prior to admission. DCP assessment completed with information currently available. Patient is a 72 year old male who admitted early this morning to the care of the hospitalist team. PCP: Dr. Bolden (in [place]). Payer: confirmed: [facility] [place]. Patient came to the hospital via private vehicle secondary to having complaints of fever, shaking chills. Patient had sepsis about a year ago, according to notes, LLE infection. Patient was diagnosed with pneumonia versus UTI versus bacteremia. ER notes also indicated that patient had hypotension, and a central line was placed for access. Patient had originally traveled to [place], and developed an infection in his left leg after mild trauma. Updated diagnosis with H&P indicates sepsis, left lower extremity cellulitis. Met with patient in his room. He is alert and oriented, sitting up in bed. Confirmed that he resides in [place] with spouse, Nuria. Patient is independent at baseline, is retired, and in the process of building a second home here on [facility]. P: DCP to follow closely. Hospitalist mentioned that patient most likely would be here for a couple more days, there is a possibility that he may need prolonged IV ABO, will depend upon cultures. Ivanna Kelsey RN/Computer Aided Design Designer Discharge Planning/Care Management CM Discharge Assessment Start: 12/06/22 10:38 Freq: Status: Active Protocol: Document 12/06/22 10:38 (Rec: 12/06/22 10:39 [id number]) Discharge Planning Assessment Assigned Band Master Ivanna Kelsey RN/Computer Aided Design Designer Advance Directives? No History Provided By Patient,Medical Record Prior Living Arrangements House Household Members spouse Type of transporation used prior to Drives own vehicle admit Independent with ADL's Yes Is patient alert and oriented? Yes Caregiver for Another No Barriers to Discharge No Discharge Plan Home Transportation Arrangement Spouse Referrals Initiated Other Additional Comment There is a possiblilty that patient could need prolonged IV ABO, will follow closely. Whiteboard Updated in Patient Room with Yes name and ext. # of Band Master Review Status In Process Next Review Type Continued Stay Review
--- NOTE | 2022-12-06 11:07 | DI.RAD.S_ITS ---
PROCEDURE: XR CHEST 1V INDICATIONS: PICC placement TECHNIQUE: One view of the chest was acquired. COMPARISON: [facility], CR, XR CHEST 1V, 12/05/2022, 14:55. FINDINGS: Surgical changes and devices: Interval placement of right PICC with tip terminating in the superior vena cava. Lungs and pleura: Bibasilar subsegmental atelectasis. No significant pleural effusion or pneumothorax. Otherwise, no focal pulmonary consolidations. Mediastinum: Mediastinal contours appear normal. Heart size is normal. Bones and chest wall: No suspicious bony lesions. Overlying soft tissues appear unremarkable. IMPRESSION: Interval placement of right PICC with tip terminating in the superior vena cava. Dictated by: Remi Villeda M.D. on 12/06/2022 at 11:59 Approved by: Remi Villeda M.D. on 12/06/2022 at 12:02
--- NOTE | 2022-12-06 11:12 | DI.US.S_ITS ---
PROCEDURE: US ABDOMEN LIMITED INDICATIONS: FOLLOW UP CT SCAN TECHNIQUE: Real-time scanning was performed of the abdominal and retroperitoneal organs, with image documentation. COMPARISON: [facility], CT, CT CHEST ABD PEL WO CON, 12/06/2022, 10:10. [facility], CT, CT ANGIO ABDOMEN PELVIS, 12/06/2022, 12:18. FINDINGS: Liver: Liver is normal in size and demonstrates diffusely echotexture. Gallbladder: There are small amount of gallbladder sludge. Gallbladder is distended. Gallbladder wall measures 3 mm. No pericholecystic fluid collection or sonographic Kong sign. Biliary ducts: Intrahepatic bile ducts are non-dilated. Extrahepatic bile duct caliber measures 3.7 mm. Normal is 6-7 mm or less in diameter, or 10 mm or less post-cholecystectomy. Pancreas: Obscured by overlying bowel gas. Miscellaneous: Small amount of free abdominal fluid is present. IMPRESSION: 1. Mildly distension of gallbladder. There is gallbladder sludge. Gallbladder wall thickness is at upper limits of normal. If there is clinical concern for acute cholecystitis, HIDA scan would be helpful. 2. A small amount of ascites. 3. Diffusely increased hepatic echotexture. This finding is most likely secondary to hepatic fatty infiltration although other hepatocellular disease may have a similar appearance. Recommend clinical correlation. 4. Pancreas not visualized due to overlying bowel gas. Dictated by: Vitaliy Starks M.D. on 12/06/2022 at 15:29 Approved by: Vitaliy Starks M.D. on 12/06/2022 at 15:34
--- NOTE | 2022-12-06 11:13 | DI.CT.S_ITS ---
PROCEDURE: CT ANGIO ABDOMEN PELVIS INDICATIONS: CT with external iliac and fat stranding, fluid TECHNIQUE: After the administration of intravenous contrast, 2.5 mm thick sections acquired from the diaphragm to the symphysis. 10 mm maximum-intensity projection (MIP) reformats were then acquired. For radiation dose reduction, the following was used: automated exposure control. COMPARISON: [facility], CT, CT CHEST ABD PEL WO CON, 12/06/2022, 10:10. FINDINGS: Image quality: Excellent. Aorta: 3.7 cm AP diameter abdominal aortic aneurysm, infrarenal location. SMA, celiac, and bilateral renal arteries are patent. There is a wide neck below the lowest renal artery and the aneurysm. Mesenteric arteries: Celiac trunk, superior and inferior mesenteric arteries appear patent. Right pelvic arteries: 3.1 cm right common iliac artery aneurysm. Probable turbulent swirling flow with a mixture of opacified and non-opacified blood in the common iliac and internal iliac period aneurysmal dilatation of the internal iliac, measuring approximately 3.0 cm. Left pelvic arteries: 3.7 cm left common iliac artery aneurysm. Extravascular soft tissues: Small bilateral pleural effusions. Minimal bibasilar atelectasis. Heart size is normal. Liver is normal in size and enhancement. Gallbladder is unremarkable without calcified gallstones. . Biliary system is non dilated. Pancreas enhances normally. Spleen is normal in size and enhancement. No adrenal nodules. Kidneys are normal in size and enhancement, without hydronephrosis. Non opacified bowel loops are normal in wall thickness and caliber. Mild free fluid in the abdomen. Presacral edema. Perivascular edema in the iliac regions. Anasarca. No retroperitoneal or mesenteric adenopathy. No ventral hernias. No suspicious bony lesions. Bilateral L5 pars defects. Anterolisthesis of L5 on S1. Right bony foraminal narrowing at L5-S1. Severe bilateral bony foraminal narrowing at L4-L5. Old T12 compression. Shotty bilateral inguinal adenopathy, possibly reactive in nature. IMPRESSION: 1. There is aneurysmal dilatation of the infrarenal aorta measuring 3.7 cm. Aneurysmal dilatation of the right common iliac artery measures 3.1 cm. Aneurysmally dilated right internal iliac artery measures 3.0 cm. Aneurysmally dilated left common iliac artery measures 3.7 cm. 2. There is no evidence of ruptured aneurysm. 3. Minimal ascites, perivascular edema, anasarca. Dictated by: Vel Sherman M.D. on 12/06/2022 at 13:36 Approved by: Vel Sherman M.D. on 12/06/2022 at 13:46
[2022-12-06] MEDS: LATANOPROST 0.005% OPHTH 2.5 ML 1 DROPS EYE-BOTH (17:00)
--- NOTE | 2022-12-06 17:07 | PM.PN.1 ---
Subjective Subjective Date Patient Seen: 12/06/22 Time Patient Seen: 08:00 Interval history: He denies any significant leg pain. He really has no belly pain. No shortness of breath. He had nausea but that is improved. Exam Vital Signs (past 8 hours): - 12/06/22 09:28 12/06/22 09:10 12/06/22 09:15 Temperature 99.4 F Pulse Rate 65 62 Respiratory Rate 28 H 31 H Blood Pressure Pulse Oximetry 94 94 Oxygen Delivery Method 12/06/22 09:20 12/06/22 09:25 12/06/22 09:30 Temperature Pulse Rate 62 63 Respiratory Rate 24 28 H Blood Pressure 103/61 Pulse Oximetry 94 93 Oxygen Delivery Method 12/06/22 09:30 12/06/22 09:35 12/06/22 09:40 Temperature Pulse Rate 62 62 63 Respiratory Rate 31 H 28 H 26 H Blood Pressure Pulse Oximetry 94 94 95 Oxygen Delivery Method 12/06/22 09:45 12/06/22 09:50 12/06/22 10:16 Temperature Pulse Rate 61 60 61 Respiratory Rate 20 21 23 Blood Pressure Pulse Oximetry 94 94 Oxygen Delivery Method 12/06/22 10:17 12/06/22 10:17 12/06/22 10:20 Temperature Pulse Rate 60 60 Respiratory Rate 29 H 25 H Blood Pressure 96/55 L Pulse Oximetry 94 94 Oxygen Delivery Method 12/06/22 10:25 12/06/22 10:30 12/06/22 10:30 Temperature Pulse Rate 60 60 Respiratory Rate 31 H 31 H Blood Pressure 94/61 Pulse Oximetry 95 94 Oxygen Delivery Method 12/06/22 10:35 12/06/22 10:40 12/06/22 10:45 Temperature Pulse Rate 60 60 61 Respiratory Rate 24 28 H 28 H Blood Pressure Pulse Oximetry 94 95 96 Oxygen Delivery Method 12/06/22 10:50 12/06/22 10:55 12/06/22 11:00 Temperature Pulse Rate 60 60 60 Respiratory Rate 26 H 22 24 Blood Pressure Pulse Oximetry 94 95 94 Oxygen Delivery Method 12/06/22 11:05 12/06/22 11:10 12/06/22 11:15 Temperature Pulse Rate 60 60 60 Respiratory Rate 24 30 H 24 Blood Pressure Pulse Oximetry 95 95 94 Oxygen Delivery Method 12/06/22 11:20 12/06/22 11:25 12/06/22 11:30 Temperature Pulse Rate 60 60 60 Respiratory Rate 27 H 27 H 30 H Blood Pressure Pulse Oximetry 95 96 96 Oxygen Delivery Method 12/06/22 11:34 12/06/22 11:34 12/06/22 11:35 Temperature Pulse Rate 60 60 Respiratory Rate 30 H 30 H Blood Pressure 100/61 Pulse Oximetry 95 95 Oxygen Delivery Method 12/06/22 11:40 12/06/22 11:45 12/06/22 11:50 Temperature Pulse Rate 60 60 60 Respiratory Rate 26 H 26 H 27 H Blood Pressure Pulse Oximetry 96 95 97 Oxygen Delivery Method 12/06/22 11:55 12/06/22 12:00 12/06/22 12:00 Temperature Pulse Rate 60 60 Respiratory Rate 25 H 30 H Blood Pressure 106/59 L Pulse Oximetry 96 95 Oxygen Delivery Method 12/06/22 12:23 12/06/22 12:25 12/06/22 12:30 Temperature Pulse Rate 60 60 61 Respiratory Rate 25 H 21 Blood Pressure Pulse Oximetry 80 L 96 35 L Oxygen Delivery Method 12/06/22 12:31 12/06/22 12:31 12/06/22 12:35 Temperature Pulse Rate 60 60 Respiratory Rate 23 23 Blood Pressure 132/69 Pulse Oximetry 65 L 76 L Oxygen Delivery Method 12/06/22 12:40 12/06/22 12:45 12/06/22 12:50 Temperature Pulse Rate 60 60 60 Respiratory Rate 20 20 20 Blood Pressure Pulse Oximetry 95 94 95 Oxygen Delivery Method 12/06/22 12:55 12/06/22 13:00 12/06/22 13:00 Temperature Pulse Rate 59 L 60 Respiratory Rate 22 20 Blood Pressure 121/73 Pulse Oximetry 96 95 Oxygen Delivery Method 12/06/22 13:05 12/06/22 13:10 12/06/22 13:00 Temperature Pulse Rate 60 63 Respiratory Rate 23 28 H Blood Pressure Pulse Oximetry 97 87 L Oxygen Delivery Method Room Air 12/06/22 13:15 12/06/22 13:20 12/06/22 13:25 Temperature Pulse Rate 61 62 61 Respiratory Rate 20 27 H 22 Blood Pressure Pulse Oximetry 96 97 98 Oxygen Delivery Method 12/06/22 13:30 12/06/22 13:34 12/06/22 13:34 Temperature Pulse Rate 64 67 Respiratory Rate 23 26 H Blood Pressure 142/73 H Pulse Oximetry 97 97 Oxygen Delivery Method 12/06/22 13:35 12/06/22 13:40 12/06/22 13:45 Temperature Pulse Rate 69 64 69 Respiratory Rate 28 H 25 H 27 H Blood Pressure Pulse Oximetry 97 97 98 Oxygen Delivery Method 12/06/22 13:50 12/06/22 13:55 12/06/22 14:00 Temperature Pulse Rate 62 62 Respiratory Rate 25 H 20 Blood Pressure 116/67 Pulse Oximetry 98 97 Oxygen Delivery Method 12/06/22 14:00 12/06/22 14:05 12/06/22 14:10 Temperature Pulse Rate 62 61 60 Respiratory Rate 21 21 22 Blood Pressure Pulse Oximetry 97 96 95 Oxygen Delivery Method 12/06/22 14:15 12/06/22 14:20 12/06/22 14:25 Temperature Pulse Rate 60 60 60 Respiratory Rate 21 21 21 Blood Pressure Pulse Oximetry 95 94 94 Oxygen Delivery Method 12/06/22 14:30 12/06/22 14:35 12/06/22 16:00 Temperature 99.1 F Pulse Rate 60 60 Respiratory Rate 20 22 Blood Pressure Pulse Oximetry 94 94 Oxygen Delivery Method 12/06/22 14:40 12/06/22 14:45 12/06/22 14:50 Temperature Pulse Rate 60 60 60 Respiratory Rate 21 21 20 Blood Pressure Pulse Oximetry 94 94 95 Oxygen Delivery Method 12/06/22 14:55 12/06/22 15:00 12/06/22 15:00 Temperature Pulse Rate 60 60 Respiratory Rate 21 21 Blood Pressure 101/56 L Pulse Oximetry 94 95 Oxygen Delivery Method 12/06/22 15:05 12/06/22 15:10 12/06/22 15:15 Temperature Pulse Rate 60 60 60 Respiratory Rate 22 23 24 Blood Pressure Pulse Oximetry 94 94 93 Oxygen Delivery Method 12/06/22 15:20 12/06/22 15:25 12/06/22 15:30 Temperature Pulse Rate 61 61 60 Respiratory Rate 21 24 21 Blood Pressure Pulse Oximetry 94 94 94 Oxygen Delivery Method 12/06/22 15:35 12/06/22 15:40 12/06/22 15:45 Temperature Pulse Rate 61 61 60 Respiratory Rate 21 23 26 H Blood Pressure Pulse Oximetry 96 94 95 Oxygen Delivery Method 12/06/22 15:50 12/06/22 15:59 12/06/22 16:00 Temperature Pulse Rate 61 73 Respiratory Rate 29 H 34 H Blood Pressure 95/58 L Pulse Oximetry 96 95 Oxygen Delivery Method 12/06/22 16:00 12/06/22 16:05 12/06/22 16:10 Temperature Pulse Rate 68 63 61 Respiratory Rate 33 H 33 H 30 H Blood Pressure Pulse Oximetry 97 94 93 Oxygen Delivery Method 12/06/22 16:15 12/06/22 16:20 12/06/22 16:23 Temperature Pulse Rate 60 60 60 Respiratory Rate 28 H 24 30 H Blood Pressure Pulse Oximetry 95 95 95 Oxygen Delivery Method 12/06/22 16:23 12/06/22 16:25 Temperature Pulse Rate 60 Respiratory Rate 29 H Blood Pressure 95/50 L Pulse Oximetry 96 Oxygen Delivery Method Oxygen Delivery Method Room Air Narrative Exam Narrative: GEN: no acute distress CV: regular rate and rhythm PULM: clear bilaterally ABD: soft, nontender EXT: left leg with chronic skin changes, no warmth, no tenderness Objective Labs 12/06/22 05:56 12/06/22 05:56 Labs: Laboratory Results - last 24 hr 12/05/22 12/05/22 12/06/22 16:01 18:15 03:50 WBC RBC Hgb Hct MCV MCH MCHC RDW Plt Count Neut % (Auto) Lymph % (Auto) [place] % (Auto) Eos % (Auto) Baso % (Auto) Neut # (Auto) Lymph # (Auto) [place] # (Auto) Eos # (Auto) Baso # (Auto) Sodium Potassium Chloride Carbon Dioxide BUN Creatinine Estimated GFR BUN/Creatinine Ratio Glucose Lactate 1.2 Calcium Total Bilirubin AST ALT Alkaline Phosphatase Total Protein Albumin Globulin Albumin/Globulin Ratio Nasal Screen MRSA (PCR) Not detected A.calcoaceticus-baumannii cmplx PCR Not detected Bacteroides fragilis Not detected Lisa albicans (PCR) Not detected Lisa auris (PCR) Not detected C. glabrata (PCR) Not detected C. krusei (PCR) Not detected C. parapsilosis (PCR) Not detected C. tropicalis (PCR) Not detected C. neoform/gattii (PCR) Not detected Enterobacterales (PCR) Not detected E. cloacae complex PCR Not detected Enterococc faecalis PCR Not detected Enterococc faecium PCR Not detected E. coli (PCR) Not detected H. influenzae (PCR) Not detected Klebsiella aerogenes (PCR) Not detected Klebsiella oxytoca PCR Not detected Klebsiella pneumoniae Not detected List. monocytogenes PCR Not detected N. meningitidis (PCR) Not detected Proteus species (PCR) Not detected Salmonella spp. (PCR) Not detected Serratia marcescens PCR Not detected Staphylococcus sp PCR Not detected Staph aureus (PCR) Not detected Staph epidermidis (PCR) Not detected Staph lugdunensis PCR Not detected S. maltophilia (PCR) Not detected Streptococcus sp PCR Detected H Group A Strep (PCR) Not detected Strep agalactiae (PCR) Not detected Strep pneumoniae (PCR) Not detected P. aeruginosa (PCR) Not detected 12/06/22 12/06/22 05:56 05:56 WBC 11.4 H RBC 3.52 L Hgb 11.7 L Hct 34.3 L MCV 97.3 MCH 33.2 MCHC 34.2 RDW 13.9 Plt Count 125 L Neut % (Auto) 93.2 H Lymph % (Auto) 3.4 L [place] % (Auto) 3.0 Eos % (Auto) 0.0 L Baso % (Auto) 0.4 Neut # (Auto) 21820 H Lymph # (Auto) 400 L [place] # (Auto) 300 Eos # (Auto) 0 Baso # (Auto) 0 Sodium 134 L Potassium 4.1 Chloride 103 Carbon Dioxide 24 BUN 36 H Creatinine 2.06 H Estimated GFR 33 L BUN/Creatinine Ratio 17.5 Glucose 103 Lactate Calcium 8.1 L Total Bilirubin 1.1 AST 35 ALT 25 Alkaline Phosphatase 50 Total Protein 6.2 L Albumin 3.3 L Globulin 2.9 Albumin/Globulin Ratio 1.1 Nasal Screen MRSA (PCR) A.calcoaceticus-baumannii cmplx PCR Bacteroides fragilis Lisa albicans (PCR) Lisa auris (PCR) C. glabrata (PCR) C. krusei (PCR) C. parapsilosis (PCR) C. tropicalis (PCR) C. neoform/gattii (PCR) Enterobacterales (PCR) E. cloacae complex PCR Enterococc faecalis PCR Enterococc faecium PCR E. coli (PCR) H. influenzae (PCR) Klebsiella aerogenes (PCR) Klebsiella oxytoca PCR Klebsiella pneumoniae List. monocytogenes PCR N. meningitidis (PCR) Proteus species (PCR) Salmonella spp. (PCR) Serratia marcescens PCR Staphylococcus sp PCR Staph aureus (PCR) Staph epidermidis (PCR) Staph lugdunensis PCR S. maltophilia (PCR) Streptococcus sp PCR Group A Strep (PCR) Strep agalactiae (PCR) Strep pneumoniae (PCR) P. aeruginosa (PCR) [facility] Medical History (Updated 12/06/22 @ 05:11 by Fortino Menjivar DO) AAA (abdominal aortic aneurysm) Abscess of left lower extremity Anticoagulant long-term use Atrial fibrillation Cholelithiasis COVID-19 virus infection Glaucoma Hyperlipidemia Hypertension Hypothyroid FARIDEH (obstructive sleep apnea) Osteoporosis Pacemaker Pulmonary hypertension Stage 3b chronic kidney disease (CKD) Social History household members: spouse Smoking Status: Never smoker alcohol intake: current Assessment & Plan Assessment and plan (1) Hypotension: Qualifiers: Hypotension type: other hypotension type Qualified Code(s): I95.89 - Other hypotension Status: Acute (2) Cellulitis of left lower extremity: Status: Acute (3) Sepsis: Status: Acute Assessment & Plan narrative: #Septic shock #Left lower extremity cellulitis on CT and by exam #03/2022 left lower extremity cellulitis/abscess requiring incision and drainage: Culture negative Left lower extremity cellulitis and abscess with culture-negative septic shock 03/2022 -history of cellulitis of left leg 02/2022 while visiting [place] treated with antibiotics. Progressed to abscess with cellulitis + shock + ATN 03/2022. Had incision and drainage which was cultured negative. MRSA/MSSA nasal swabs were negative. Creatinine improved from 5 back to 1.9. -Now has fever, chills, nausea, workup shows possible cellulitis vs cholecystitis. Leukocytosis and elevated procalcitonin noted. Lactate 2.5 improved with 30 cc/KG bolus. -blood cultures positive for strep -CT imaging negative for pneumonia -UA and covid negative -continue Zosyn + Zyvox, while awaiting cultures -levophed for MAP goal >65 -repeat blood cultures -picc line placed -may need echo depending on culture results CKD stage IIIb: 1.9-2.5 is creatinine Had ATN due to hypotension in March when he had sepsis and hypotension High risk for recurrent ZITA/ATN monitor closely Atrial fibrillation -Apixiban: hold dose until known if need intervension on gallblladder CODE STATUS: -Full code # SECONDARY PROBLEMS Neuropathy Permanent atrial fibrillation Bradycardia: Leadless pacemaker 06/02/2022 Hypertension - hold nifedipine Aortic stenosis: Mild Pulmonary hypertension AAA 3.9 + bilateral common iliac aneurysms 3.5 + RI Ilac + bilateral popliteal artery aneurysms - appear stable FARIDEH + CPAP - Cholelithasis Microsopic hematuria Hyperlipidemia - Atorvastatin Hypothyroid - [place] thyroid Osteoporosis - hold alendronate and Vit D + Calcium Glaucoma - latanoprost + timolol COVID-19 COVID-19 status: Negative Quality VTE Deep Vein Thrombosis/Pulmonary Embolism Present on Admission: Yes
[2022-12-07] VITALS (68 sets, daily range): BP systolic 90–128; BP diastolic 55–74; PULSE 60–73; RESP 11–40; TEMP 36.8–38.7; O2SAT 69–99
[2022-12-07] MEDS: LINEZOLID 600 MG/300 ML IV.SOLN IV ×2 (01:25→15:17)
[2022-12-07] MEDS: SODIUM CHLORIDE 0.9% 1,000 ML 150 ML IV (01:25)
[2022-12-07] MEDS: PIPERACILLIN/TAZO 3.375 GM in SODIUM CHLORIDE 0.9% 100 ML IV ×3 (03:54→21:10)
[2022-12-07] MEDS: ACETAMINOPHEN 325 MG TABLET 650 MG PO ×3 (04:48→18:12)
[2022-12-07 04:58] LABS: Hematocrit 31.2 % (41-53); Hemoglobin 10.8 g/dL (13.5-17.5); Mean Corpuscular HGB Conc 34.8 % (30-36); Mean Corpuscular Hemoglobin 33.5 PG (26-34); Mean Corpuscular Volume 96.3 fL (80-100); Platelet Count 107 X10^3/uL (150-400); Red Blood Cell Count 3.24 X10^6/uL (4.5-5.9); Red Cell Distribution Width 13.9 % (11.6-14.8); White Blood Cell Count 9.2 X10^3/uL (4.5-11.0)
[2022-12-07 05:06] LABS: BUN Creatinine Ratio 15.9 (6-22); Blood Urea Nitrogen 36 mg/dL (9-20); Calcium 7.7 mg/dL (8.4-10.2); Carbon Dioxide 25 mmol/L (22-32); Chloride 105 mmol/L (98-107); Estimated Glomerular Filt Rate 30 mL/min (>60); Glucose 111 mg/dL (80-110); HEMOLYSIS < 15 (0-50); Potassium 3.6 mmol/L (3.4-5.1); Sodium 134 mmol/L (137-145)
[2022-12-07] MEDS: THYROID, PORK 30 MG TABLET PO (06:31)
--- NOTE | 2022-12-07 06:36 | PC.NURSE ---
Surveillance Dual Rate Officer Note-Patient dozed intermittently overnight. T-max 101.7, minimal rigors, Tylenol given for headache and fever. BP stable, see vital trends. Patient states he is feeling better.
[2022-12-07] MEDS: TIMOLOL 0.5% OPHTH 1 DROPS EYE-BOTH (08:23)
--- NOTE | 2022-12-07 14:15 | P.PN_ITS ---
Subjective Subjective Date Patient Seen: 12/07/22 Time Patient Seen: 08:00 Interval history: He feels much better. His notes he did have some back pain prior to admission. The patient notes he suspects this was musculoskeletal. No leg pain. No abdominal pain. Exam Vital Signs (past 8 hours): - 12/07/22 06:58 12/07/22 07:00 12/07/22 07:00 Temperature 98.2 F Pulse Rate 61 62 Respiratory Rate 40 H 26 H Blood Pressure 105/63 Pulse Oximetry 93 95 Oxygen Delivery Method 12/07/22 07:05 12/07/22 07:10 12/07/22 07:15 Temperature Pulse Rate 61 61 60 Respiratory Rate 23 22 22 Blood Pressure Pulse Oximetry 94 95 94 Oxygen Delivery Method 12/07/22 07:20 12/07/22 07:25 12/07/22 09:44 Temperature Pulse Rate 62 67 Respiratory Rate 23 23 Blood Pressure Pulse Oximetry 96 96 Oxygen Delivery Method Room Air 12/07/22 07:30 12/07/22 07:35 12/07/22 07:40 Temperature Pulse Rate 68 68 69 Respiratory Rate 22 22 23 Blood Pressure Pulse Oximetry 95 95 95 Oxygen Delivery Method 12/07/22 07:45 12/07/22 07:50 12/07/22 07:55 Temperature Pulse Rate 68 65 67 Respiratory Rate 23 22 23 Blood Pressure Pulse Oximetry 95 95 95 Oxygen Delivery Method 12/07/22 08:00 12/07/22 08:00 12/07/22 08:05 Temperature Pulse Rate 69 68 Respiratory Rate 22 22 Blood Pressure 107/67 Pulse Oximetry 95 96 Oxygen Delivery Method 12/07/22 08:10 12/07/22 08:15 12/07/22 08:20 Temperature Pulse Rate 68 68 72 Respiratory Rate 23 23 30 H Blood Pressure Pulse Oximetry 96 95 95 Oxygen Delivery Method 12/07/22 08:58 12/07/22 09:00 12/07/22 09:05 Temperature Pulse Rate 63 61 62 Respiratory Rate 29 H 28 H Blood Pressure Pulse Oximetry Oxygen Delivery Method 12/07/22 09:10 12/07/22 09:15 12/07/22 09:20 Temperature Pulse Rate 62 61 61 Respiratory Rate 28 H 30 H 31 H Blood Pressure Pulse Oximetry Oxygen Delivery Method 12/07/22 09:25 12/07/22 09:30 12/07/22 09:35 Temperature Pulse Rate 62 61 60 Respiratory Rate 31 H 26 H 24 Blood Pressure Pulse Oximetry Oxygen Delivery Method 12/07/22 09:40 12/07/22 09:45 12/07/22 09:50 Temperature Pulse Rate 60 60 60 Respiratory Rate 32 H 29 H 28 H Blood Pressure Pulse Oximetry Oxygen Delivery Method 12/07/22 09:55 12/07/22 10:00 12/07/22 10:05 Temperature Pulse Rate 60 61 61 Respiratory Rate 32 H 31 H 31 H Blood Pressure Pulse Oximetry Oxygen Delivery Method 12/07/22 10:10 12/07/22 10:15 12/07/22 10:20 Temperature Pulse Rate 61 60 60 Respiratory Rate 27 H 25 H 25 H Blood Pressure Pulse Oximetry Oxygen Delivery Method 12/07/22 10:25 12/07/22 10:30 12/07/22 10:35 Temperature Pulse Rate 60 61 61 Respiratory Rate 25 H 23 23 Blood Pressure Pulse Oximetry Oxygen Delivery Method 12/07/22 10:40 12/07/22 10:45 12/07/22 10:50 Temperature Pulse Rate 61 62 61 Respiratory Rate 23 28 H 26 H Blood Pressure Pulse Oximetry Oxygen Delivery Method 12/07/22 10:55 12/07/22 11:00 Temperature Pulse Rate 61 61 Respiratory Rate 25 H 32 H Blood Pressure Pulse Oximetry Oxygen Delivery Method Oxygen Delivery Method Room Air Narrative Exam Narrative: GEN: no acute distress CV: regular rate and rhythm PULM: clear bilaterally ABD: soft, nontender EXT: left leg with chronic skin changes, no warmth, no tenderness Objective Labs 12/07/22 04:40 12/07/22 04:40 Labs: Laboratory Results - last 24 hr 12/05/22 12/07/22 12/07/22 16:01 04:40 04:40 WBC 9.2 RBC 3.24 L Hgb 10.8 L Hct 31.2 L MCV 96.3 MCH 33.5 MCHC 34.8 RDW 13.9 Plt Count 107 L Sodium 134 L Potassium 3.6 Chloride 105 Carbon Dioxide 25 BUN 36 H Creatinine 2.26 H Estimated GFR 30 L BUN/Creatinine Ratio 15.9 Glucose 111 H Calcium 7.7 L A.calcoaceticus-baumannii cmplx PCR Not detected Bacteroides fragilis Not detected Lisa albicans (PCR) Not detected Lisa auris (PCR) Not detected C. glabrata (PCR) Not detected C. krusei (PCR) Not detected C. parapsilosis (PCR) Not detected C. tropicalis (PCR) Not detected C. neoform/gattii (PCR) Not detected Enterobacterales (PCR) Not detected E. cloacae complex PCR Not detected Enterococc faecalis PCR Not detected Enterococc faecium PCR Not detected E. coli (PCR) Not detected H. influenzae (PCR) Not detected Klebsiella aerogenes (PCR) Not detected Klebsiella oxytoca PCR Not detected Klebsiella pneumoniae Not detected List. monocytogenes PCR Not detected N. meningitidis (PCR) Not detected Proteus species (PCR) Not detected Salmonella spp. (PCR) Not detected Serratia marcescens PCR Not detected Staphylococcus sp PCR Not detected Staph aureus (PCR) Not detected Staph epidermidis (PCR) Not detected Staph lugdunensis PCR Not detected S. maltophilia (PCR) Not detected Streptococcus sp PCR Detected H Group A Strep (PCR) Not detected Strep agalactiae (PCR) Not detected Strep pneumoniae (PCR) Not detected P. aeruginosa (PCR) Not detected PFSH Medical History (Updated 12/06/22 @ 05:11 by Fortino Menjivar DO) AAA (abdominal aortic aneurysm) Abscess of left lower extremity Anticoagulant long-term use Atrial fibrillation Cholelithiasis COVID-19 virus infection Glaucoma Hyperlipidemia Hypertension Hypothyroid FARIDEH (obstructive sleep apnea) Osteoporosis Pacemaker Pulmonary hypertension Stage 3b chronic kidney disease (CKD) Social History household members: spouse Smoking Status: Never smoker alcohol intake: current Assessment & Plan Assessment and plan (1) Hypotension: Qualifiers: Hypotension type: other hypotension type Qualified Code(s): I95.89 - Other hypotension Status: Acute (2) Cellulitis of left lower extremity: Status: Acute (3) Sepsis: Status: Acute Assessment & Plan narrative: #Septic shock #Etiology is cellulitis vs cholecystitis #history of left lower extremity cellulitis/abscess requiring incision and drainage: Culture negative -history of cellulitis of left leg 02/2022 while visiting [place] treated with antibiotics. Progressed to abscess with cellulitis + shock + ATN 03/2022. Had incision and drainage which was cultured negative. MRSA/MSSA nasal swabs were negative. Creatinine improved from 5 back to 1.9. -Now has fever, chills, nausea, workup shows possible cellulitis vs cholecystitis. Leukocytosis and elevated procalcitonin noted. Lactate 2.5 improved with 30 cc/KG bolus. -blood cultures positive for strep -CT imaging negative for pneumonia -UA and covid negative -continue Zosyn + Zyvox, while awaiting cultures -levophoed off since 12/06 afternoon -repeat blood cultures pending -picc line placed -may need echo depending on culture results CKD stage IIIb: 1.9-2.5 is creatinine Had ATN due to hypotension in March when he had sepsis and hypotension High risk for recurrent ZITA/ATN monitor closely Atrial fibrillation -Apixiban: hold dose until known if need intervension on gallblladder CODE STATUS: -Full code # SECONDARY PROBLEMS Neuropathy Permanent atrial fibrillation Bradycardia: Leadless pacemaker 06/02/2022 Hypertension - hold nifedipine Aortic stenosis: Mild Pulmonary hypertension AAA 3.9 + bilateral common iliac aneurysms 3.5 + RI Ilac + bilateral popliteal artery aneurysms - appear stable FARIDEH + CPAP - Cholelithasis Microsopic hematuria Hyperlipidemia - Atorvastatin Hypothyroid - [place] thyroid Osteoporosis - hold alendronate and Vit D + Calcium Glaucoma - latanoprost + timolol COVID-19 COVID-19 status: Negative Quality VTE Deep Vein Thrombosis/Pulmonary Embolism Present on Admission: Yes
[2022-12-07] MEDS: LATANOPROST 0.005% OPHTH 2.5 ML 1 DROPS EYE-BOTH (17:27)
--- NOTE | 2022-12-07 18:49 | PC.NURSE ---
Day Shift Note Alert and oriented x3. Up in room independently with no sign/symptoms dizziness. BP stable in the 100s/70s. Walked around acute care/ICU floor with SBA, steady on feet. PICC line dressing changed without issue. Tylenol administered for pt report of generalized aches 07/02. Call light within reach, using appropriately to make needs known.
[2022-12-07] MEDS: SODIUM CHLORIDE 0.9% FLUSH 10 ML IV (21:10)
[2022-12-08] VITALS (13 sets, daily range): BP systolic 98–131; BP diastolic 60–76; PULSE 59–76; RESP 16–20; TEMP 36.8–37.5; O2SAT 86–99
[2022-12-08] MEDS: ACETAMINOPHEN 325 MG TABLET 650 MG PO ×5 (00:01→23:45)
[2022-12-08] MEDS: LINEZOLID 600 MG/300 ML IV.SOLN IV (01:54)
[2022-12-08] MEDS: PIPERACILLIN/TAZO 3.375 GM in SODIUM CHLORIDE 0.9% 100 ML IV (04:39)
[2022-12-08 05:04] LABS: Hematocrit 28.9 % (41-53); Mean Corpuscular HGB Conc 34.6 % (30-36); Mean Corpuscular Hemoglobin 33.2 PG (26-34); Platelet Count 107 X10^3/uL (150-400); Red Blood Cell Count 3.01 X10^6/uL (4.5-5.9); White Blood Cell Count 7.2 X10^3/uL (4.5-11.0)
[2022-12-08 05:13] LABS: BUN Creatinine Ratio 14.9 (6-22); Blood Urea Nitrogen 37 mg/dL (9-20); Calcium 7.6 mg/dL (8.4-10.2); Carbon Dioxide 23 mmol/L (22-32); Chloride 106 mmol/L (98-107); Estimated Glomerular Filt Rate 27 mL/min (>60); Glucose 107 mg/dL (80-110); HEMOLYSIS < 15 (0-50); Potassium 3.5 mmol/L (3.4-5.1); Sodium 135 mmol/L (137-145)
[2022-12-08] MEDS: THYROID, PORK 30 MG TABLET PO (06:25)
--- NOTE | 2022-12-08 08:08 | DI.ECHO.S_ITS ---
[facility] +---------+ [facility] +---------+ : : [address] [place] : : : : [id number] : : : : Phone: [phone]+ Echocardiogram Report + + :Name: TINY MORALES Study Date: 12/08/2022 Height: 69 in : :[facility] ReadingLocation: Weight: 228 lb : : Gender: Male BSA: 2.2 m2 : :: 1950 Age: 72 yrs BP: 121/72 mmHg: :Reason For Study: BACTEREMIA : :Ordering Physician: ALEX, : :OSKAR Walker Performed By: Lizbet Davis : :Referring: OSKAR JOHNSON : + + Interpretation Summary Regular white QRS rhythm. Suspect underlying Wenckebach with Mobitz type I second-degree AV block. Do not see obvious pacemaker lead however in one of the short axis view, pacemaker leads seen in the RV. The left ventricle is normal in size. Left ventricular ejection fraction is estimated to be 45 +/- 5%. Septum is hypokinetic as well as in some of the apical views hypokinetic distal anterolateral and inferior lateral wall. The interventricular septum is flattened, consistent with a right ventricular pressure/volume condition. The right ventricle is moderate to severely dilated. Right ventricular systolic function is at the lower limits of normal. Both atria are severely dilated. There is mild to moderate mitral regurgitation. There is moderate tricuspid regurgitation. The right ventricular systolic pressure is estimated to be at least 43.4 mmHg based on an estimated right atrial pressure of 15 mm Hg. Procedure: A two-dimensional transthoracic echocardiogram with color flow and Doppler was performed. The study quality was technically adequate. There is no prior echocardiogram noted for this patient. The heart rate ranged between 60-68 bpm during the study. Regular white QRS rhythm. Suspect underlying Wenckebach with Mobitz type I second-degree AV block. Do not see obvious pacemaker lead. Correlate clinically. Left Ventricle: There is normal left ventricular wall thickness. The left ventricle is normal in size. Septum is hypokinetic as well as in some of the apical views hypokinetic distal anterolateral and inferior lateral wall. Left ventricular ejection fraction is estimated to be 45 +/- 5%. The interventricular septum is flattened, consistent with a right ventricular pressure/volume condition. There is a moderate dyssynchronous contraction pattern due to the paced rhythm. E/E' med: 12.3. Right Ventricle: The right ventricle is moderate to severely dilated. There is a pacemaker lead in the right ventricle. Right ventricular systolic function is at the lower limits of normal. Atria: The left atrium is severely dilated. Both atria are severely dilated. The right atrium is severely dilated. There is no Doppler evidence for an interatrial shunt. Mitral Valve: The mitral valve is normal in structure and function. There is mild mitral annular calcification. The mitral valve is normal in structure but abnormal in function. There is mild to moderate mitral regurgitation. Aortic Valve: The aortic valve is trileaflet. The aortic valve is mildly calcified. There is mild aortic valve sclerosis. There is mildly reduced leaflet mobility. There is no hemodynamically significant valvular aortic stenosis. There is trace aortic regurgitation. Tricuspid Valve: The tricuspid annulus is dilated. There is moderate tricuspid regurgitation. The right ventricular systolic pressure is estimated to be at least 43.4 mmHg based on an estimated right atrial pressure of 15 mm Hg. Pulmonic Valve: The pulmonic valve is not well seen, but is grossly normal. There is mild pulmonic regurgitation. Great Vessels: The aortic root is mildly dilated. The dimensions of the ascending aorta are normal. The IVC is dilated (diameter is greater than 2.1 cm) and it collapses less than 50% with a sniff. This suggests a high right atrial pressure of 15 mm Hg. Pericardium/ Pleura There is no pericardial effusion. There is no pleural effusion. MMode/2D Measurements & Calculations LVIDd: 5.3 cm LVOT diam: 2.3 cm LVIDs: 3.4 cm Ao root diam: 4.4 cm FS: 35.5 % asc Aorta Diam: 3.6 cm EPSS: 0.42 cm Ao Arch Diam (Prox Trans): 4.2 cm IVSd: 0.90 cm LVPWd: 0.59 cm LV felix. diameter/BSA (cm/m^2): 2.4 LV sys. diameter/BSA (cm/m^2): 1.6 LA A2 area: 27.6 cm2 RA long axis: 8.3 cm LA A4 area: 37.8 cm2 RA area: 45.8 cm2 LA length (vol): 7.8 cm RA vol: 213.8 ml LA vol: 114.4 ml RA : 97.9 ml/m2 LA vol index: 52.4 ml/m2 IVC diam: 3.4 cm RVD1 (basal): 5.0 cm RVD2 (mid): 4.3 cm TAPSE: 1.9 cm Doppler Measurements & Calculations Ao V2 max: 164.6 cm/sec LVOT Max Antony: 97.3 cm/sec Ao V2 mean: 119.8 cm/sec LV V1 max P.8 mmHg Ao max P.8 mmHg LV V1 VTI: 19.5 cm Ao mean P.4 mmHg BERNADETTE(I,D): 2.6 cm2 Ao V2 VTI: 30.8 cm BERNADETTE(V,D): 2.4 cm2 sev ratio: 0.63 BERNADETTE indexed to BSA (cm^2/m^2): 1.2 MV E max antony: 80.7 cm/sec TR max antony: 265.8 cm/sec MV A max antony: 2.3 cm/sec TR max P.4 mmHg MV E/A: 34.5 PA V2 max: 111.6 cm/sec Med Peak E' Antony: 6.6 cm/sec PA V2 mean: 72.6 cm/sec E/E' med: 12.3 PA mean P.4 mmHg Lat Peak E' Antony: 12.7 cm/sec PA pr(Accel): 37.9 mmHg E/E' lat: 6.3 E/e' average: 9.3 MV dec time: 0.17 sec SV(LVOT): 78.9 ml Reading Physician:01:11 PM
[2022-12-08] MEDS: SODIUM CHLORIDE 0.9% FLUSH 10 ML IV (08:48)
[2022-12-08] MEDS: TIMOLOL 0.5% OPHTH 1 DROPS EYE-BOTH (08:48)
--- NOTE | 2022-12-08 09:34 | P.PN_ITS ---
Subjective Subjective Interval history: Left leg a little sore, ankle a little swollena nd groin sore with swollen node. Blood cx pos for strept dysgalactiae. No abdomen pain or nausea. Right arm PICC in place (2 days ago). Exam Vital Signs (past 8 hours): - 12/08/22 04:00 12/08/22 08:23 Temperature 98.7 F 99 F Pulse Rate 62 60 Respiratory Rate 17 16 Blood Pressure 114/69 121/72 Pulse Oximetry 97 98 Oxygen Flow Rate 0 0 Oxygen Delivery Method Room Air Oxygen Flow Rate 0 Narrative Exam Narrative: NAD Lungs clear CV regular Abdome soft non-tender Left leg a little swollen and tender. Left groin tender with a node. No real redness or warmth. Objective Labs 12/08/22 04:45 12/08/22 04:45 Labs: Laboratory Results - last 24 hr 12/05/22 12/08/22 12/08/22 16:01 04:45 04:45 WBC 7.2 RBC 3.01 L Hgb 10.0 L Hct 28.9 L MCV 96.0 MCH 33.2 MCHC 34.6 RDW 14.0 Plt Count 107 L Sodium 135 L Potassium 3.5 Chloride 106 Carbon Dioxide 23 BUN 37 H Creatinine 2.48 H Estimated GFR 27 L BUN/Creatinine Ratio 14.9 Glucose 107 Calcium 7.6 L A.calcoaceticus-baumannii cmplx PCR Not detected Bacteroides fragilis Not detected Lisa albicans (PCR) Not detected Lsia auris (PCR) Not detected C. glabrata (PCR) Not detected C. krusei (PCR) Not detected C. parapsilosis (PCR) Not detected C. tropicalis (PCR) Not detected C. neoform/gattii (PCR) Not detected Enterobacterales (PCR) Not detected E. cloacae complex PCR Not detected Enterococc faecalis PCR Not detected Enterococc faecium PCR Not detected E. coli (PCR) Not detected H. influenzae (PCR) Not detected Klebsiella aerogenes (PCR) Not detected Klebsiella oxytoca PCR Not detected Klebsiella pneumoniae Not detected List. monocytogenes PCR Not detected N. meningitidis (PCR) Not detected Proteus species (PCR) Not detected Salmonella spp. (PCR) Not detected Serratia marcescens PCR Not detected Staphylococcus sp PCR Not detected Staph aureus (PCR) Not detected Staph epidermidis (PCR) Not detected Staph lugdunensis PCR Not detected S. maltophilia (PCR) Not detected Streptococcus sp PCR Detected H Group A Strep (PCR) Not detected Strep agalactiae (PCR) Not detected Strep pneumoniae (PCR) Not detected P. aeruginosa (PCR) Not detected PFSH Medical History (Updated 12/06/22 @ 05:11 by Fortino Menjivar DO) AAA (abdominal aortic aneurysm) Abscess of left lower extremity Anticoagulant long-term use Atrial fibrillation Cholelithiasis COVID-19 virus infection Glaucoma Hyperlipidemia Hypertension Hypothyroid FARIDEH (obstructive sleep apnea) Osteoporosis Pacemaker Pulmonary hypertension Stage 3b chronic kidney disease (CKD) Social History household members: spouse Smoking Status: Never smoker alcohol intake: current Assessment & Plan Assessment & Plan narrative: 1. Left leg cellulitis, POA 2. Strept dysgalactiae bacteremia, POA 3. ZITA on CKD 3, new and active. - IVF and monitor. 4. Chronic atrial fib, POA and stable 5. Doubt cholecystitis. Follow clinically. -cont abx and follow renal function. Leg US rule out abscess and start arranging home IV abx (14 days). Will discuss with ID today. Chronic problems: Neuropathy Permanent atrial fibrillation Bradycardia:?Leadless pacemaker 06/02/2022 Hypertension -?hold nifedipine Aortic stenosis: Mild Pulmonary hypertension AAA 3.9 + bilateral common iliac aneurysms 3.5 + RI Ilac + bilateral popliteal artery aneurysms -?appear stable FARIDEH + CPAP - Cholelithasis Microsopic hematuria Hyperlipidemia -?Atorvastatin Hypothyroid -?[place] thyroid Osteoporosis -?hold alendronate and Vit D + Calcium Glaucoma -?latanoprost + timolol Time Spent With Patient Time with patient: 30 to 49 minutes with 50% spent counseling/coordinating care Quality VTE Deep Vein Thrombosis/Pulmonary Embolism Present on Admission: Yes
--- NOTE | 2022-12-08 10:39 | DI.US.S_ITS ---
PROCEDURE: US EXTREMITY NONVASC LOWER LT INDICATIONS: LT LOWER LEG REDNESS/SWELLING. H/O ABSCESS WYNN. R/O ABSCESS TECHNIQUE: Real-time scanning was performed of the left lower extremity , with image documentation. COMPARISON: None. FINDINGS: In the left anterior, medial wynn at the scar/prior abscess, there is a hypoechoic collection with increased vascularity tracking to the skin line. This measures 2.1 x 0.8 x 0.7 centimeter. On the left dorsal, superior/medial foot, there is a small, irregular fluid collection with increased vascularity measuring 3.5 x 1.8 x 0.8 centimeter. This likely has internal gas. Diffuse increased edema within the lower extremity. Fluid tracking along the tendons of the lower extremity. IMPRESSION: 2.1 x 0.8 x 0.7 centimeter suspected abscess in the left anterior, medial wynn. 3.5 x 1.8 x 0.8 centimeter irregular fluid collection along the left dorsal, superior/medial foot. Dictated by: Christiano Anderson M.D. on 12/08/2022 at 12:08 Approved by: Christiano Anderson M.D. on 12/08/2022 at 12:11
[2022-12-08] MEDS: POTASSIUM CHLORIDE 20 MEQ TAB 40 MEQ PO (12:35)
[2022-12-08] MEDS: cefTRIAXone 1,000 MG in SODIUM CHLORIDE 0.9% 100 ML 200 MG IV (12:35)
--- NOTE | 2022-12-08 16:43 | CM.DPC ---
DCP Continued: [employer]CH[employer] reviewed EMR. Per provider in rounds, patient likely will be here two more days. IS needs pending ID input. From Naun at IS, patient will most likely need to be set up at hospital once per week for nursing needs. Patient lives on [address]. [employer] unable to speak with patient due to triaging needs today Plan: pending provider recommendation for home IS. CM team will follow closely tomorrow. Likely home on [address] when medically stable. CM team will follow up first thing in morning. BHAVIN Mariano
[2022-12-08] MEDS: LATANOPROST 0.005% OPHTH 2.5 ML 1 DROPS EYE-BOTH (17:54)
[2022-12-08] MEDS: APIXABAN 5 MG TABLET PO (21:50)
[2022-12-08] MEDS: cefTRIAXone 2,000 MG in SODIUM CHLORIDE 0.9% 100 ML 200 MG IV (21:58)
[2022-12-09] VITALS (15 sets, daily range): BP systolic 107–141; BP diastolic 62–85; PULSE 60–63; RESP 16–19; TEMP 35.9–37.3; O2SAT 48–99
[2022-12-09] MEDS: ACETAMINOPHEN 325 MG TABLET 650 MG PO ×3 (04:51→17:08)
[2022-12-09 05:17] LABS: BUN Creatinine Ratio 16.2 (6-22); Blood Urea Nitrogen 38 mg/dL (9-20); Calcium 7.8 mg/dL (8.4-10.2); Carbon Dioxide 24 mmol/L (22-32); Chloride 107 mmol/L (98-107); Estimated Glomerular Filt Rate 29 mL/min (>60); Glucose 99 mg/dL (80-110); HEMOLYSIS < 15 (0-50); Potassium 4.1 mmol/L (3.4-5.1); Sodium 134 mmol/L (137-145)
[2022-12-09] MEDS: THYROID, PORK 30 MG TABLET PO (07:53)
[2022-12-09] MEDS: TIMOLOL 0.5% OPHTH 1 DROPS EYE-BOTH (08:01)
[2022-12-09] MEDS: APIXABAN 5 MG TABLET PO ×2 (08:02→21:47)
[2022-12-09] MEDS: SODIUM CHLORIDE 0.9% FLUSH 10 ML IV ×2 (08:04→21:47)
--- NOTE | 2022-12-09 11:51 | PC.NURSE ---
pt and family reported lt Leg and is more edematous and has more erythema. elevated pt's leg. will notify provider.
[2022-12-09] MEDS: LINEZOLID 600 MG/300 ML IV.SOLN IV (13:11)
--- NOTE | 2022-12-09 13:26 | DI.US.S_ITS ---
PROCEDURE: US EXTREMITY NONVASC LOWER LT INDICATIONS: GROIN INFECTION TECHNIQUE: Real-time scanning was performed of the left groin , with image documentation. COMPARISON: [facility], , EXTREMITY NONVASC LOWER LT, 12/08/2022, 10:53. FINDINGS: Subcutaneous edema is present. Multiple prominent lymph nodes with normal fatty hilum, likely reactive. IMPRESSION: Subcutaneous edema and prominent lymph nodes, likely reactive. No organized fluid collections. Dictated by: Remi Villeda M.D. on 12/09/2022 at 15:31 Approved by: Remi Villeda M.D. on 12/09/2022 at 15:32
--- NOTE | 2022-12-09 13:32 | DI.NM.S_ITS ---
PROCEDURE: NM HIDA WITH CCK PHARMACEUTICAL: 5.5 mCi Tc-99m mebrofenin IV; 2.0 mcg CCK IV. INDICATIONS: acute tegan TECHNIQUE: Following intravenous administration of Tc-99m mebrofenin, sequential anterior abdominal images were obtained. To evaluate the contractile response of the gallbladder in response to Cholecystokinin (CCK), sincalide (0.02 ?g/kg) was administered by slow intravenous infusion approximately 60 minutes after the administration of the radiopharmaceutical. Sequential imaging was continued for 30 minutes after the start of CCK infusion. Gallbladder ejection fraction was calculated. COMPARISON: [facility], CT, CT ANGIO ABDOMEN PELVIS, 12/06/2022, 12:18. [facility], US, US ABDOMEN LIMITED, 12/06/2022, 12:56. FINDINGS: Biliary scan: There is normal tracer uptake and excretion by the liver. There is normal visualization of the intrahepatic ducts, common bile duct, and gallbladder. There is normal tracer transit into the duodenum. CCK stimulation: There is absence of contractile response of the gallbladder to CCK infusion. The calculated gallbladder ejection fraction is 0%; normal values are above 35%. It has been shown that any patient abdominal pain after CCK administration is related to the rate of CCK injection, rather than to any underlying gallbladder disease (Clinical Nuclear Medicine 2012; 37: 63-70. Journal of Nuclear Medicine 2014; 55: 1-9). IMPRESSION: 1. Normal filling of gallbladder. No evidence for acute cholecystitis. 2. Absence of contractile response of gallbladder to CCK stimulation, consistent with gallbladder dyskinesia. Dictated by: Gal Michael M.D. on 12/10/2022 at 10:04 Approved by: Gal Michael M.D. on 12/10/2022 at 10:07
--- NOTE | 2022-12-09 14:03 | P.CONS_ITS ---
History of Present Illness Consult details Date Patient Seen: 12/09/22 Time Patient Seen: 14:03 Chief complaint: thinks recurrance of sistemic bacterial inf Reason for consult: left leg cellulitis, possible cholecystitis Requesting provider: Scot Muñoz Narrative: Patient admitted for recurrence of infection of left lower extremity with enlarged left groin lymph node. Original infection happened on a trip to [place], he also has underlying ajit stasis disease. Noticed increased swelling and redness on left lower extremity and now has Strep dysgalactiae growing from his original blood culture. Admit diagnosis is sepsis. Ultrasound of lower left leg shows 2 areas of fluid or possible air that should respond to IV antibiotics given the size. No pain in the leg. Ultrasound of gallbladder has sludge and upper limits of normal wall thickness. I reviewed the CT angio scan from yesterday and there is mild intra abdominal ascites, small bilateral pleural effusions c/w systemic involvement. I can not visualize the left groin to make a call on abscess there. Meds Home Medications and Allergies Home Medications Medication Instructions Recorded Confirmed Type alendronate 70 mg tablet 70 mg PO DAILY 12/05/22 12/06/22 History apixaban 5 mg tablet (Eliquis) 5 mg PO BID 12/05/22 12/06/22 History atorvastatin 40 mg tablet 40 mg PO ONCE PM 12/05/22 12/06/22 History calcium citrate 200 mg (950 mg) 1,800 mg PO Q OTHER DAY 12/05/22 12/06/22 History tablet cholecalciferol (vitamin D3) 50 50 mcg PO DAILY 12/05/22 12/06/22 History mcg (2,000 unit) capsule latanoprost 0.005 % eye drops 1 drp EYE-BOTH QPM 12/05/22 12/06/22 History nifedipine 30 mg tablet,extended 30 mg PO DAILY 12/05/22 12/06/22 History release 24 hr thyroid (pork) 30 mg tablet 30 mg PO QAM 12/05/22 12/06/22 History ([place] Thyroid) timolol maleate 0.5 % eye drops 1 drp EYE-BOTH QAM 12/05/22 12/06/22 History Allergies Allergy/AdvReac Type Severity Reaction Status Date / Time No Known Drug Allergies Allergy Verified 12/05/22 14:11 Review of Systems Review of Systems Narrative: +chills ROS: Yes All systems reviewed with the patient and are negative except as otherwise documented Exam Vital Signs (past 8 hours): - 12/09/22 07:00 12/09/22 12:02 12/09/22 12:18 Temperature 96.7 F L 99.0 F 97.3 F L Pulse Rate 60 60 Respiratory Rate 17 18 Blood Pressure 114/72 141/81 H Pulse Oximetry 93 97 Oxygen Flow Rate 0 0 12/09/22 12:35 Temperature 99.0 F Pulse Rate Respiratory Rate Blood Pressure Pulse Oximetry Oxygen Flow Rate Oxygen Delivery Method Room Air Oxygen Flow Rate 0 Const General: cooperative Nutritional Appearance: average body habitus Orientation: alert, awake and oriented x3 HENMT Head: normocephalic and atraumatic Nose: external nose normal Eyes General: appearance normal, both eyes and all related structures Sclera: sclerae normal Neck Neck: trachea midline Resp Effort & Inspection: normal respiratory effort and able to speak in complete sentences Cardio Rate: regular rate Rhythm: regular rhythm GI Inspection: normal to inspection Palpation: soft Skin General: atrophy Other: bilateral lower extremity venous stasis ulcer disease. left lower leg cellulitis with swelling and redness in left groin Neuro General: patient alert, patient awake and patient oriented x3 Cognition: normal cognition Extrem Left lower extremity: edema and foot (chronic clear blister wound on tip of large toe.) Other: venous stasis skin changes, old medial lower leg scar, overlying cellulitis with lymphedema. left groin swelling with golf ball size lymph node. redness tracking medial and posterior Psych Appearance: grossly normal Mental Status: mental status grossly normal Affect: normal affect Judgment: judgment good Objective Labs 12/08/22 04:45 12/09/22 04:45 Labs: Laboratory Results - last 24 hr 12/09/22 04:45 Sodium 134 L Potassium 4.1 Chloride 107 Carbon Dioxide 24 BUN 38 H Creatinine 2.35 H Estimated GFR 29 L BUN/Creatinine Ratio 16.2 Glucose 99 Calcium 7.8 L [facility] Medical History AAA (abdominal aortic aneurysm) Abscess of left lower extremity Anticoagulant long-term use Atrial fibrillation Cholelithiasis COVID-19 virus infection Glaucoma Hyperlipidemia Hypertension Hypothyroid FARIDEH (obstructive sleep apnea) Osteoporosis Pacemaker Pulmonary hypertension Stage 3b chronic kidney disease (CKD) Social History household members: spouse Tobacco & Substance Use Smoking Status: Never smoker alcohol intake: current Assessment & Plan Assessment & Plan narrative: Left lower extremity cellulitis with sepsis and blood cultures positive for strep dysgalactiae. Possible left groin abscess. I am not concerned for necrotizing fasciitis. There are also concern on admission for his gallbladder and an indeterminate US Plan: Ultra sound of left groin to look for abscess HIDA scan to rule out gallbladder as source of this type of strep. Time Spent With Patient Time with patient: 50 to 69 minutes with 50% spent counseling/coordinating care
--- NOTE | 2022-12-09 14:12 | PC.NURSE ---
Addendum entered by Lisa Ayers R.N. 12/09/22 17:18: pt c/o chills and wanted tylenol. temp 98.9. provider aware of his chills. Original Note: provider aware pt's HIDA scan will be tomorrow. pt will need to be NPO at midnight and no narcotics for the scan.
[2022-12-09 14:15] LABS: INR 1.5 (0.9-1.3); Prothrombin Time 16.7 SECONDS (10.1-12.7)
--- NOTE | 2022-12-09 16:19 | CM.DPC ---
DCP Continued: BINDING BENCH WORKER reviewed EMR. Per provider, patient may be able to d/c when infusion set up. BINDING BENCH WORKER entered room and introduced self and role. Patient was sitting up in bed and accompanied by spouse at bedside. Patient open to home infusions. Patient open to [facility] for nursing to manage PICC line. Patient has been up and walking around in hallways. BINDING BENCH WORKER spoke with Mervin at [facility] regarding patient's needs. Mervin reports likely to accept no issues. BINDING BENCH WORKER completed face to face. From provider, abscess found on patient's leg and likely no longer able to d/c Tuesday. BINDING BENCH WORKER updated Barb with infusion solutions. BINDING BENCH WORKER answered Barb's questions. BINDING BENCH WORKER faxed Barb PICC line assessment. Barb requested verbal order from provider for final infusion information. BINDING BENCH WORKER gave provider phone number and relayed [facility] request for verbal order. Plan: home to [facility] when medically stable with home infusion and [facility] for nursing. CM team will continue to follow closely. BHAVIN Mariano
[2022-12-09] MEDS: LATANOPROST 0.005% OPHTH 2.5 ML 1 DROPS EYE-BOTH (16:32)
--- NOTE | 2022-12-09 18:52 | PM.PN.1 ---
Subjective Subjective Interval history: Patient notes increased chills and LLE redness worsened today. Gen surg consulted due to potential abscess seen on LE US. Added linezolid for better staph/strep coverage. Exam Vital Signs (past 8 hours): - 12/09/22 12:02 12/09/22 12:18 12/09/22 12:35 Temperature 99.0 F 97.3 F L 99.0 F Pulse Rate 60 Respiratory Rate 18 Blood Pressure 141/81 H Pulse Oximetry 97 Oxygen Flow Rate 0 12/09/22 17:08 12/09/22 16:00 Temperature 98.9 F 99 F Pulse Rate 60 Respiratory Rate 16 Blood Pressure 132/85 Pulse Oximetry 97 Oxygen Flow Rate 0 Oxygen Delivery Method Room Air Oxygen Flow Rate 0 Narrative Exam Narrative: NAD Lungs clear CV regular Abdomen soft, non-tender Left leg a swollen and tender to palpation. Redness extending from foot to mid-wynn. Left groin tender with a node. Objective Labs 12/08/22 04:45 12/09/22 04:45 Labs: Laboratory Results - last 24 hr 12/09/22 12/09/22 04:45 13:58 PT 16.7 H INR 1.5 H Sodium 134 L Potassium 4.1 Chloride 107 Carbon Dioxide 24 BUN 38 H Creatinine 2.35 H Estimated GFR 29 L BUN/Creatinine Ratio 16.2 Glucose 99 Calcium 7.8 L PFSH Medical History AAA (abdominal aortic aneurysm) Abscess of left lower extremity Anticoagulant long-term use Atrial fibrillation Cholelithiasis COVID-19 virus infection Glaucoma Hyperlipidemia Hypertension Hypothyroid FARIDEH (obstructive sleep apnea) Osteoporosis Pacemaker Pulmonary hypertension Stage 3b chronic kidney disease (CKD) Social History household members: spouse Smoking Status: Never smoker alcohol intake: current Assessment & Plan Assessment & Plan narrative: 1. Left leg cellulitis with possible abscess, POA. Added linezolid due to worsened redness on 12/09. Gen surg consulted and does not think I&D needed at this time. 2. Strep dysgalactiae bacteremia, POA. Continue rocephin 2g daily x2 weeks. Spoke with ID and said no need to prolong course past 2 weeks due to pacer, as blood cultures cleared and TTE negative for endocarditis. Will see patient in clinic and follow labs from [facility]. 3. ZITA on CKD 3, improving. IVF and monitor. 4. Chronic atrial fib, POA and stable 5. Doubt cholecystitis. Follow clinically. HIDA ordered by gen surg. Chronic problems: Neuropathy Permanent atrial fibrillation Bradycardia:?Leadless pacemaker 06/02/2022 Hypertension -?hold nifedipine Aortic stenosis: Mild Pulmonary hypertension AAA 3.9 + bilateral common iliac aneurysms 3.5 + RI Ilac + bilateral popliteal artery aneurysms -?appear stable FARIDEH + CPAP - Cholelithasis Microsopic hematuria Hyperlipidemia -?Atorvastatin Hypothyroid -?[place] thyroid Osteoporosis -?hold alendronate and Vit D + Calcium Glaucoma -?latanoprost + timolol Dispo: Home with IV abx in 1-2 days pending improvement in cellulitis. Time Spent With Patient Time with patient: 30 to 49 minutes with 50% spent counseling/coordinating care Quality VTE Deep Vein Thrombosis/Pulmonary Embolism Present on Admission: Yes
[2022-12-09] MEDS: cefTRIAXone 2,000 MG in SODIUM CHLORIDE 0.9% 100 ML 200 MG IV (21:47)
[2022-12-10] MEDS: LINEZOLID 600 MG/300 ML IV.SOLN IV ×2 (00:51→13:34)
[2022-12-10] MEDS: ACETAMINOPHEN 325 MG TABLET 650 MG PO ×2 (01:26→06:26)
[2022-12-10 05:08] LABS: Add Manual Diff / Slide Review NO; Basophils Absolute Auto 0 /uL (0-100); Basophils Percent Auto 0.4 % (0-2); Eosinophils Absolute Auto 100 /uL (0-450); Eosinophils Percent Auto 1.2 % (2-4); Hemoglobin 9.9 g/dL (13.5-17.5); Lymphocytes Absolute Auto 900 /uL (1100-4500); Lymphocytes Percent Auto 13.3 % (25-40); Mean Corpuscular HGB Conc 35.3 % (30-36); Mean Corpuscular Hemoglobin 33.6 PG (26-34); Mean Corpuscular Volume 95.1 fL (80-100); Monocytes Absolute Auto 700 /uL (0-900); Monocytes Percent Auto 10.1 % (3-14); Neutrophils Absolute Auto 5100 /uL (1500-7000); Platelet Count 114 X10^3/uL (150-400); Red Blood Cell Count 2.94 X10^6/uL (4.5-5.9); Red Cell Distribution Width 13.8 % (11.6-14.8); White Blood Cell Count 6.7 X10^3/uL (4.5-11.0)
[2022-12-10 05:24] LABS: Blood Urea Nitrogen 33 mg/dL (9-20); Carbon Dioxide 23 mmol/L (22-32); Chloride 108 mmol/L (98-107); Estimated Glomerular Filt Rate 31 mL/min (>60); Glucose 103 mg/dL (80-110); HEMOLYSIS < 15 (0-50); Sodium 137 mmol/L (137-145)
[2022-12-10] MEDS: THYROID, PORK 30 MG TABLET PO (06:26)
[2022-12-10] MEDS: TIMOLOL 0.5% OPHTH 1 DROPS EYE-BOTH (10:40)
[2022-12-10] MEDS: SODIUM CHLORIDE 0.9% FLUSH 10 ML IV (10:40)
[2022-12-10] MEDS: APIXABAN 5 MG TABLET PO (10:42)
[2022-12-10 10:53] VITALS: BP 129/71; PULSE 68; RESP 16; TEMP 36.8; O2SAT 100
--- NOTE | 2022-12-10 10:54 | PM.PN.1 ---
Subjective Subjective Date Patient Seen: 12/10/22 Time Patient Seen: 10:54 Interval history: Patient frustrated, left groin is improved but edema and redness of left leg is worse Exam Vital Signs (past 8 hours): Oxygen Delivery Method Room Air Oxygen Flow Rate 0 Narrative Exam Narrative: Left groin is softer, redness remains, no abscess on ultrasound. Left leg to my view is similar. HIDA scan is negative. Objective Labs 12/10/22 04:15 12/10/22 04:15 Labs: Laboratory Results - last 24 hr 12/09/22 12/10/22 12/10/22 13:58 04:15 04:15 WBC 6.7 RBC 2.94 L Hgb 9.9 L Hct 28.0 L MCV 95.1 MCH 33.6 MCHC 35.3 RDW 13.8 Plt Count 114 L Neut % (Auto) 75.0 Lymph % (Auto) 13.3 L [place] % (Auto) 10.1 Eos % (Auto) 1.2 L Baso % (Auto) 0.4 Neut # (Auto) 5100 Lymph # (Auto) 900 L [place] # (Auto) 700 Eos # (Auto) 100 Baso # (Auto) 0 PT 16.7 H INR 1.5 H Sodium 137 Potassium 4.0 Chloride 108 H Carbon Dioxide 23 BUN 33 H Creatinine 2.20 H Estimated GFR 31 L BUN/Creatinine Ratio 15.0 Glucose 103 Calcium 8.0 L PFSH Medical History AAA (abdominal aortic aneurysm) Abscess of left lower extremity Anticoagulant long-term use Atrial fibrillation Cholelithiasis COVID-19 virus infection Glaucoma Hyperlipidemia Hypertension Hypothyroid FARIDEH (obstructive sleep apnea) Osteoporosis Pacemaker Pulmonary hypertension Stage 3b chronic kidney disease (CKD) Social History household members: spouse Smoking Status: Never smoker alcohol intake: current Assessment & Plan Assessment & Plan narrative: Left lower extremity appears to be the source. NO abscess in groin, fluid collection in leg not big enough to drain given the poor healing that will ensue the risk benefits are not there. Plan: recommend medical management with close follow up. Time Spent With Patient Time with patient: less than 30 minutes Quality VTE Deep Vein Thrombosis/Pulmonary Embolism Present on Admission: Yes
--- NOTE | 2022-12-10 11:41 | P.DS_ITS ---
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 He had originally traveled to [place] and developed infection in his left leg after mild trauma. Despite multiple doses of antibiotics he developed 4 X 5 X 1 cm abscess in the left lower leg associated with shock and ATN. Post I/D all cultures were negative and his MSSA/MRSA Nasal Swab was also negative. He did not require dialysis. He had chronic bradycardia and had a pacemaker as an outpatient. His creatinine has improved from 5.0-1.9 recently. He lives in [place] and is building a house on one of the [facility]. He developed fever and chills and was concerned about recurrent infection. He has some redness in his left lower extremities but there is no tenderness or fluctuance. He denied any respiratory symptoms, abdominal symptoms, or symptoms. At [facility] he had a temperature 101.1, blood pressure 110/59, heart rate 59, respiratory rate 23, and normal saturations. Blood pressure did drop into the 70s and 80s. Exam significant for mild redness with warmth of the left lower leg and medial ankle without fluctuance or marked tenderness. Labs significant for procalcitonin 1.82, lactate 3.5 >>1.2, WBC 11.8, hemoglobin 12.3, 96% neutrophils, BUN 42, creatinine 1.92, normal bicarbonate, total bilirubin 1.5 with normal transaminases, procalcitonin 122, negative UA, and negative viral respiratory panel. Chest x-ray had bibasilar atelectasis but no overt infiltrate. EKG was ventricular paced with a rate of 62. He was given normal saline 30 cc/kg along with Rocephin and azithromycin. Bilateral internal jugular central lines were attempted but abandoned. His blood pressure has stabilized to 110 systolic for the past few hours. I reviewed the patient's case with the ER attending and requested a CT scan of the left lower leg, & Zosyn was started. Will determine disposition for transfer or admission depending on clinical response CT now confirms left lower leg cellultis. SBP remians 100. He will be admitted to ICU for management. PMHx +ER cisits: Left lower leg cuts and infection in [place] treated with antibiot ics +Admitted 04/03 - 04/10/2022 [facility]: Severe sepsis, chronic bradycardia, shock, sepsis left lower leg with abscess, + ischemic ATN with creatinine 5.0. Creatinine improved to 2.0 post discharge. Did not need dialysis. I/D done by surgery. Chronic bradycardia 40's at baseline. No pacer placed. 1. Neuropathy 2. Permanent atrial fibrillation 3. Bradycardia: Leadless pacemaker 06/02/2022 4. Hypertension 5. Aortic stenosis: Mild 6. Pulm hypertension 7. AAA 3.9 + bilateral common iliac aneurysms 3.5 + RI Ilac + bilateral popliteal artery aneurysms 8. Pansinusitis 9. FARIDEH + CPAP 10. Cholelithasis 11. CKD stage IIIb: 1.9-2.5 12. Microsopic hematuria 13. Hyperlipidemia 14. Hypothyroid 15. Eliquis anticoagulation 16. Osteoporosis 17. Glaucoma 18. COVID-19 infection 07/2021 19. Left lower extremity cellulitis and abscess with culture-negative septic shock 03/2022 Echo 04/03/2022 ? ?Left ventricle size is normal. Normal wall thickness. Normal systolic function. LV EF is 67 % , assessed by modified Dueñas's biplane. There is elevated left atrial pressure and grade II left ventricular diastolic dysfunction ? ?Right ventricle is moderately dilated. The RV/LV ratio is 1.1. Normal systolic function. TAPSE measures 2.59 cm. ? ?Severe bi-atrial enlargement. ? ?Moderate tricuspid transvalvular regurgitation. ? ?Mild mitral regurgitation. ? ?Aortic sclerosis with possible mild stenosis; the peak and mean aortic gradients are 19/10mmHg, respectively. ? ?Trivial circumferential pericardial effusion present. ? ?Moderate pulmonary hypertension; the estimated PA pressure is 40-45 mmHg by an estimated RA pressure of 15 mmHg. PAST SURGICAL HISTORY 1. Leadless pacemaker 06/02/2022 2. Left patella surgery 1971 3. Inguinal hernia repair: Bilateral 4. LLE abscess I/D 04/03/2022 : [facility] Discharge Providers Provider Date of admission: 12/06/22 02:29 Discharge Date: 12/10/22 Primary care physician: Kendell Murray MD Consults: 12/09/22 12:50 Consult to General Surgery Routine Comment: Consulting Provider: Gisele Lawson Reason for consultation: leg abscess Discharge provider: Scot Muñoz DO Summary Hospital Course Discharge Diagnosis: 1. Left leg cellulitis with possible abscess, left groin reactive LN's, POA. On rocephin 2g daily. Gen surg consulted and does not think I&D needed at this time for small superfical abscesses seen on US. US groin showed enlarged LN's only. 2. Strep dysgalactiae bacteremia, POA. Continue rocephin 2g daily x2 weeks. Spoke with ID and said no need to prolong course past 2 weeks due to pacer, as blood cultures cleared and TTE negative for endocarditis. Will see patient in clinic and follow labs from [facility]. 3. ZITA on CKD 3, improving. IVF and monitor. 4. Chronic atrial fib, POA and stable 5. Doubt cholecystitis. Follow clinically. HIDA ordered by gen surg and was negative. Chronic problems: Neuropathy Permanent atrial fibrillation Bradycardia:?Leadless pacemaker 06/02/2022 Hypertension -?hold nifedipine Aortic stenosis: Mild Pulmonary hypertension AAA 3.9 + bilateral common iliac aneurysms 3.5 + RI Ilac + bilateral popliteal artery aneurysms -?appear stable FARIDEH + CPAP - Cholelithasis Microsopic hematuria Hyperlipidemia -?Atorvastatin Hypothyroid -?[place] thyroid Osteoporosis -?hold alendronate and Vit D + Calcium Glaucoma -?latanoprost + timolol Hospital Course: Admitted for LLE cellulitis and found to have strep dysgalactiae bacteremia. Started on 2g rocephin daily and blood cultures cleared. Cellulitis improved. Arranged 2 weeks of IV rocephin with infusion solutions and Dr. Pradeep BURRIS will follow patient in clinic. Exam Vital Signs (past 8 hours): - 12/10/22 09:53 Temperature 98.2 F Pulse Rate 68 Respiratory Rate 16 Blood Pressure 129/71 Pulse Oximetry 100 Oxygen Flow Rate 0 Oxygen Delivery Method Room Air Oxygen Flow Rate 0 Narrative Exam Narrative: NAD Lungs clear CV regular Abdomen soft, non-tender Left leg a swollen and tender to palpation. Redness extending from foot to mid- wynn. Left groin tender with a node. Cellulitis now improving. Objective Labs 12/10/22 04:15 12/10/22 04:15 Labs: Laboratory Results - last 24 hr 12/09/22 12/10/22 12/10/22 13:58 04:15 04:15 WBC 6.7 RBC 2.94 L Hgb 9.9 L Hct 28.0 L MCV 95.1 MCH 33.6 MCHC 35.3 RDW 13.8 Plt Count 114 L Neut % (Auto) 75.0 Lymph % (Auto) 13.3 L [place] % (Auto) 10.1 Eos % (Auto) 1.2 L Baso % (Auto) 0.4 Neut # (Auto) 5100 Lymph # (Auto) 900 L [place] # (Auto) 700 Eos # (Auto) 100 Baso # (Auto) 0 PT 16.7 H INR 1.5 H Sodium 137 Potassium 4.0 Chloride 108 H Carbon Dioxide 23 BUN 33 H Creatinine 2.20 H Estimated GFR 31 L BUN/Creatinine Ratio 15.0 Glucose 103 Calcium 8.0 L PFSH Medical History AAA (abdominal aortic aneurysm) Abscess of left lower extremity Anticoagulant long-term use Atrial fibrillation Cholelithiasis COVID-19 virus infection Glaucoma Hyperlipidemia Hypertension Hypothyroid FARIDEH (obstructive sleep apnea) Osteoporosis Pacemaker Pulmonary hypertension Stage 3b chronic kidney disease (CKD) Social History household members: spouse Smoking Status: Never smoker alcohol intake: current Discharge Plan Discharge Plan Patient Disposition: Home Health Service Discharge orders & Medications Prescriptions: New torsemide 40 mg tablet 40 mg PO QAM Qty: 20 0RF Continued nifedipine 30 mg tablet extended release 24hr 30 mg PO DAILY latanoprost 0.005 % drops 1 drp EYE-BOTH QPM atorvastatin 40 mg tablet 40 mg PO ONCE PM alendronate 70 mg tablet 70 mg PO DAILY timolol maleate 0.5 % drops 1 drp EYE-BOTH QAM calcium citrate 200 mg (950 mg) Tablet 1,800 mg PO Q OTHER DAY cholecalciferol (vitamin D3) 50 mcg (2,000 unit) Capsule 50 mcg PO DAILY Rx Instructions: [id number] unit every other day thyroid (pork) [[place] Thyroid] 30 mg tablet 30 mg PO QAM Eliquis 5 mg tablet 5 mg PO BID Follow up/Referrals: Lelo Fernández MD [Non-Staff] - As previously scheduled (ID clinic will reach out to make appt) Kendell Murray MD [Primary Care Provider] - 2 Weeks Other Ambulatory Orders: Referral to: (Schedule) Timeframe: 1 Week Location: Outside Services Ordered By: Scot Muñoz Visit Report/Discharge Packet Stand Alone Forms: Patient Portal/API, Stroke Signs & Symptoms Discharge Data Primary Care Provider: Kendell Murray Discharges patient from system. Discharge Date/Time: 12/10/22 17:25 Quality VTE Deep Vein Thrombosis/Pulmonary Embolism Present on Admission: Yes
--- NOTE | 2022-12-10 12:14 | CM.DPC ---
DCP Discharge Per MD, pt is medically stable to d/c home on IV-Abx Q24 and HH. SW confirmed with [facility] that their RN will do bedside teach today at 1530 and per Pharmacist pt's Ceftriaxone dose can be safely given at that time. SW faxed [facility] pt's script/orders, PICC insertion note, recent MD note with orders, and d/c summ to review. JIMENEZ Nelson alerted [facility] that F2F scanned and pt to d/c home today. SW met bedside with pt and spouse and updated on above and they remain in agreement with d/c plan and appreciative of the bedside teach today and confirm they are looking forward to getting to their home on [facility] and provided them brochure for [facility] and [facility]. MICHAELLE updated RN and MD. Plan: Patient to d/c home today via spouse POV after 1530 bedside teach and IV-Abx infusion with [facility] RN and [facility] RN to follow after d/c. Suzan Adhikari, MOLD CLEANER
--- NOTE | 2022-12-10 17:31 | PC.NURSE ---
Discharge Note Patient A&O, VSS, RA, no complaints of pain/discomfort. Patient agreeable to discharge plan. Discharge packet reviewed with patient, all questions/concerns addressed. PICC line left intact for HH IV abx treatment, patient able to dress self and pack all belongings. Patient taken down via wheelchair to POV.
--- NOTE | 2022-12-11 11:47 | CM.DPC ---
Addendum entered by Ayala Nunez, BHAVIN 12/11/22 14:19: Mervin called back to let him know that [facility] can accept. Mervin reports it appears to have been an honest mistake. They can accept patient for care. KATE Addendum entered by Ayala Nunez, BHAVIN 12/11/22 14:17: Mervin from [facility] returned this author's call. He said that patient was accepted last week and is unsure now why they are saying did not accept. Mervin will look into it and get back to CM team with more information. KATE Original Note: DCP Continued: MUSEUM EXHIBIT TECHNICIAN received call from spouse re: [facility] denial of referral? MUSEUM EXHIBIT TECHNICIAN lvm with Mervin at [facility]. MUSEUM EXHIBIT TECHNICIAN spoke with Jenn at intake with [facility]. Jenn reports that denial looks like it was a mistake and their team will re review on Tuesday. MUSEUM EXHIBIT TECHNICIAN called patient back. Spoke with patient and spouse, told them [facility] would re review on Tuesday and get back to them. Patient and spouse are unsure if they're going to remain here or return to [place] for the remainder of antibiotics. CM team will continue to follow as needed. Ayala Nunez, BHAVIN
== END 2022-12-10 17:25 | disposition home health service (06) | DRG 871 ==
LOC: ED 18:05 → AC 12-06 02:31 → ICU 12-06 03:28
PROVIDERS: Emergency Medicine; Internal Medicine; Student in an Organized Health Care Education/Training Program; Surgery; Admitting Provider Specialist; Emergency Provider Emergency Medicine; PCP Internal Medicine Cardiovascular Disease; Referring Provider Emergency Medicine; Visit Provider Specialist
DX: A41.9 Sepsis, unspecified organism (principal); R65.21 Severe sepsis with septic shock; L03.116 Cellulitis of left lower limb; N17.9 Acute kidney failure, unspecified; I48.20 Chronic atrial fibrillation, unspecified; L02.416 Cutaneous abscess of left lower limb; E78.5 Hyperlipidemia, unspecified; H40.9 Unspecified glaucoma; E03.9 Hypothyroidism, unspecified; B95.4 Other streptococcus as the cause of diseases classified elsewhere; I87.8 Other specified disorders of veins; M81.0 Age-related osteoporosis without current pathological fracture; I12.9 Hypertensive chronic kidney disease with stage 1 through stage 4 chronic kidney disease, or unspecified chronic kidney disease; N18.30 Chronic kidney disease, stage 3 unspecified; Z79.01 Long term (current) use of anticoagulants; Z95.0 Presence of cardiac pacemaker
CPT/HCPCS: 36415; 36573; 36592; 71045; 71250; 73700; 74174; 74176; 76705; 76882; 78227; 80048; 80053; 81003; 81015; 83605; 83690; 84145; 85025; 85027; 85610; 85730; 87040; 87077; 87154; 87186; 87633; 87797; 93005; 93306; 96365; 96367; 96375; 99232; 99233; 99284; 99285; A9537; J0696; J1885; J2020; J2543; J2805; Q9967